=== PATIENT | female | born 1945 | race Caucasian/White ===

== ENCOUNTER 2017-07-27 11:19 | Inpatient (IN) | payer BC ==
[~2017-07-27] VITALS: Ht 146.3 cm; Wt 68.3 kg
[2017-09-01 11:33] VITALS: Ht 146.3 cm; Wt 68.3 kg
[2017-09-02] VITALS (31 sets, daily range): BP systolic 95–131; BP diastolic 50–79; PULSE 52–78; RESP 11–22
[2017-09-02] MEDS ORDERED: D5-NS + KCL 20 MEQ 1,000 ML IV SCH (06:00)
[2017-09-02] MEDS ORDERED: Metronidazole 500 MG in NS 100 ML IVPB SCH (06:00)
[2017-09-02] MEDS ORDERED: CEFAZOLIN 2 GM/50 ML (PMX) 50 ML IVPB SCH (06:00)
[2017-09-02] MEDS ORDERED: ASPI81TA3 PO (07:15)
[2017-09-02] MEDS ORDERED: AMLO-147 PO (07:15)
[2017-09-02] MEDS ORDERED: ATEN50TA PO (07:15)
[2017-09-02] MEDS ORDERED: HYDR12.53 PO (07:15)
[2017-09-02] MEDS ORDERED: ATOR40TA68 PO (07:15)
[2017-09-02] MEDS ORDERED: SUCCINYLCHOLINE CHLORIDE 100 MG/5 ML SYG IV ONE (07:46)
[2017-09-02] MEDS ORDERED: METOCLOPRAMIDE 10 MG INJ ONE (07:46)
[2017-09-02] MEDS ORDERED: ONDANSETRON 4 MG INJ ONE (07:46)
[2017-09-02] MEDS ORDERED: ROCURONIUM 50 MG INJ ONE (07:46)
[2017-09-02] MEDS ORDERED: PROPOFOL 20 ML ONE (07:46)
[2017-09-02] MEDS ORDERED: FENTAnyl 50 MCG/ML VIAL ONE (07:46)
[2017-09-02] MEDS ORDERED: LIDOCAINE 2%/EPI 30 ML INJ ONE (08:10)
[2017-09-02] MEDS ORDERED: MIDAZOLAM 1 MG/ML 2 ML INJ ONE (08:10)
[2017-09-02] MEDS ORDERED: THROMBIN 5000 UNIT VIAL ONE (08:13)
[2017-09-02] MEDS ORDERED: VASOPRESSIN 20 UNITS INJ ONE (08:13)
[2017-09-02] MEDS ORDERED: METHYLENE BLUE 1% 10 ML INJ ONE (08:13)
[2017-09-02] MEDS ORDERED: SODIUM CL BACTERIOSTATIC 30 ML INJ ONE (08:16)
[2017-09-02] MEDS: metroNIDAZOLE 500 MG/NS (PMX) 100 ML IVPB SCH ×2 (09:30→17:27)
--- NOTE | 2017-09-02 09:47 | HPN ---
Date/Time of Note Date/Time of Note DATE: 09/02/17 TIME: 09:47 Interval H&P Admission Note Pt. seen H&P reviewed: No system changes NUNO HECTOR MD Sep 02, 2017 09:47
[2017-09-02] MEDS ORDERED: CEFAZOLIN 1 GM in SOD CHLORIDE 0.9% 100 ML IVPB SCH (10:00)
[2017-09-02] MEDS ORDERED: HYDROmorphONE (0.2 MG/ML) 10ML SYG IV PRN ×3 (10:30)
[2017-09-02] MEDS ORDERED: ONDANSETRON 4 MG INJ IV PRN ×2 (10:30→11:30)
[2017-09-02] MEDS ORDERED: FENTAnyl 50 MCG/ML VIAL IV PRN ×2 (10:30)
[2017-09-02] MEDS ORDERED: MEPERIDINE 25 MG INJ IV PRN (10:30)
[2017-09-02] MEDS ORDERED: LABETALOL HCL 20MG INJ IV PRN (10:30)
[2017-09-02] MEDS ORDERED: hydrALAzine 20 MG INJ IV PRN (10:30)
[2017-09-02] MEDS ORDERED: morphine SULFATE/PF (10 MG/10 ML) INJ ONE (11:23)
[2017-09-02] MEDS ORDERED: NALOXONE (0.4 MG/ML) INJ IV PRN (11:30)
[2017-09-02] MEDS ORDERED: DIPHENHYDRAMINE 50 MG INJ IV PRN (11:30)
[2017-09-02] MEDS ORDERED: HYDROmorphONE 0.5 MG/0.5 ML SYG IV PRN ×2 (11:30)
[2017-09-02] MEDS ORDERED: ATROPINE 1 MG/10 ML SYRINGE ONE (12:37)
[2017-09-02] MEDS ORDERED: NEOSTIGMINE 3 MG/3 ML SYRINGE ONE (12:38)
--- NOTE | 2017-09-02 12:51 | SIPON ---
Date/Time of Note Date/Time of Note DATE: 09/02/17 TIME: 12:49 Operative Report Preoperative Diagnosis endometrial cancer Postoperative Diagnosis same path pending Operation/Procedure Performed TLH/BSO/P/A LND Surgeon see signature line inventory assistant Anitra BRADLEY Anesthesia: other Estimated blood loss: 50 - 100 ml's Transfusion Required none Specimen multiple Grafts/Implants none Complications none NUNO HECTOR MD Sep 02, 2017 12:51
--- NOTE | 2017-09-02 12:51 | SIPON ---
Date/Time of Note Date/Time of Note DATE: 09/02/17 TIME: 12:49 Operative Report Preoperative Diagnosis endometrial cancer Postoperative Diagnosis same path pending Operation/Procedure Performed TLH/BSO/P/A LND Surgeon see signature line human resource assistant Anitra BRADLEY Anesthesia: other Estimated blood loss: 50 - 100 ml's Transfusion Required none Specimen multiple Grafts/Implants none Complications none NUNO HECTOR MD Sep 02, 2017 12:51
--- NOTE | 2017-09-02 12:51 | SIPON ---
Date/Time of Note Date/Time of Note DATE: 09/02/17 TIME: 12:49 Operative Report Preoperative Diagnosis endometrial cancer Postoperative Diagnosis same path pending Operation/Procedure Performed TLH/BSO/P/A LND Surgeon see signature line assistant store leader Anitra BRADLEY Anesthesia: other Estimated blood loss: 50 - 100 ml's Transfusion Required none Specimen multiple Grafts/Implants none Complications none NUNO HECTOR MD Sep 02, 2017 12:51
[2017-09-02] MEDS: CEFAZOLIN 1 GM/50 ML (PMX) 50 ML IVPB SCH ×2 (13:53→20:53)
[2017-09-02] MEDS ORDERED: ACETAMINOPHEN 325 MG TAB PO PRN (16:00)
[2017-09-02] MEDS: POTASSIUM CHLORIDE 20 MEQ in LACTATED RINGER'S 1,000 ML IV SCH ×2 (16:25→19:44)
[2017-09-03] MEDS: metroNIDAZOLE 500 MG/NS (PMX) 100 ML IVPB SCH (02:32)
[2017-09-03 05:00] VITALS: BP 115/55; PULSE 63
[2017-09-03] MEDS: CEFAZOLIN 1 GM/50 ML (PMX) 50 ML IVPB SCH (05:37)
[2017-09-03] MEDS: POTASSIUM CHLORIDE 20 MEQ in LACTATED RINGER'S 1,000 ML IV SCH ×2 (05:38→17:46)
--- NOTE | 2017-09-03 06:10 | HP ---
DATE OF ADMISSION: 09/02/2017 CHIEF COMPLAINT AND HISTORY OF PRESENT ILLNESS: The patient is a 72-year-old female with a history of endometrial cancer, was brought in to hospital today and underwent laparoscopic total hysterectom y, bilateral salpingo-oophorectomy and local lymph node dissection. The patient is being admitted f or further care. The patient denied any chest pain or shortness of breath. No reported nausea, vom iting, no reported leg edema. No previous history of diabetes. The patient does have a history of hypertension for which she was on Norvasc, atenolol and hydrochlorothiazide. The patient also has h istory of dyslipidemia for which she was taking Lipitor. Patient denies any resting pain in lower e xtremity. No recent fever or chills. REVIEW OF SYSTEMS: Other than postoperative pain, rest of review of systems unremarkable. PAST MEDICAL HISTORY: As stated above. ALLERGIES: NONE. SOCIAL HISTORY: No smoking, no alcohol. FAMILY HISTORY: Noncontributory. PHYSICAL EXAMINATION: GENERAL: The patient is conscious, awake, alert. VITAL SIGNS: Temperature 98.4, pulse 64, respirations 22, blood pressure 115/55, O2 saturation 97% on 2 liters nasal cannula. HEENT: No eye discharge or redness. Extraocular movement intact. Oropharynx clear. NECK: Supple. No mass, no thyromegaly. CHEST: Fairly clear. CARDIOVASCULAR: S1, S2 normal. No murmur. ABDOMEN: The patient is status post surgery. EXTREMITIES: No edema. Pedal pulses palpable. SKIN: Without rash. NEUROLOGIC: The patient is awake, alert with no gross focal deficit. RECENT PREOPERATIVE LABORATORY DATA: WBC 9.3, hemoglobin 12.6, platelets 251. Sodium 143, potassiu m 3.7, BUN 16, creatinine 0.7. Liver enzymes normal. Postoperatively, the patient did have repeat labs which revealed white count of 22.2, hemoglobin 11.3; however, potassium was 3.2. IMPRESSION: 1. Endometrial cancer, status post surgery as described above. 2. Hypertension. 3. Mild hypokalemia. PLAN: The patient admitted on medical floor. The patient will be started on clear liquid diet. Th e patient has also been started on Ringer lactate. As there has been concern, patient will be start ed on Tylenol, [place] and IV Dilaudid for pain control, depending upon severity and will use SCD for DVT prophylaxis. Since the patient's blood pressure seems to be within low normal range, we will on ly start atenolol and will continue Lipitor. We will hold off on hydrochlorothiazide and amlodipine . We will continue to follow electrolytes. Plan of care discussed with nursing staff. Further rec ommendations will depend on patient's hospital course. Dictated By: PRINCESS OBREGON/KASANDRA Conf#: [id number] DID#: [id number]
[2017-09-03 07:53] VITALS: BP 110/54
[2017-09-03] MEDS: ATENOLOL 50 MG TAB PO SCH (08:47)
[2017-09-03] MEDS: morphine 2 MG INJ IV PRN ×3 (08:56→20:07)
--- NOTE | 2017-09-03 10:24 | PN ---
Date/Time of Note Date/Time of Note DATE: 09/03/17 TIME: 10:24 Assessment/Plan VTE Prophylaxis VTE Prophylaxis Intervention: other Lines/Catheters IV Catheter Type (from Nrs): Peripheral IV Urinary Cath still in place: Yes Reason Cath still needed: skin wounds contaminated by urine Assessment/Plan Chief Complaint/Hosp Course 1. Endometrial cancer, status post surgery as described above. 2. Hypertension. 3. Mild hypokalemia. Problems: Subjective 24 Hr Interval Summary Free Text/Dictation Patient has some abdominal pain Exam/Review of Systems Vital Signs Vitals Vital Signs Date Time Temp Pulse Resp B/P Pulse Ox O2 Delivery O2 Flow Rate FiO2 09/03/17 08:00 Nasal Cannula 3.0 09/03/17 07:53 98.3 86 110/54 93 09/02/17 23:59 18 Intake and Output 09/02/17 09/02/17 09/03/17 15:00 23:00 07:00 Intake Total 2050 ml 320 ml 1490 ml Output Total 700 ml 125 ml 950 ml Balance 1350 ml 195 ml 540 ml Exam Constitutional: well developed Head: atraumatic, normocephalic Neck: supple Respiratory: clear to auscultation Cardiovascular: regular rate and rhythm Gastrointestinal: soft, tender Extremities: normal pulses Results Result Diagram: 09/02/17 1327 09/03/17 0449 Results 24 hrs Laboratory Tests Test 09/02/17 13:27 09/03/17 04:49 White Blood Count 22.2 #H Red Blood Count 3.84 L Hemoglobin 11.7 L Hematocrit 34.0 L Mean Corpuscular Volume 88.5 Mean Corpuscular Hemoglobin 30.5 Mean Corpuscular Hemoglobin Concent 34.4 Red Cell Distribution Width 12.2 Platelet Count 272 Mean Platelet Volume 10.1 Neutrophils % 87.7 H Lymphocytes % 5.2 L Monocytes % 6.3 Eosinophils % 0.0 Basophils % 0.3 Nucleated Red Blood Cells % 0.0 Neutrophils # 19.5 H Lymphocytes # 1.2 Monocytes # 1.4 H Eosinophils # 0.0 Basophils # 0.1 Nucleated Red Blood Cells # 0.0 CBC Results Faxed/Phoned 1 *H Sodium Level 144 143 Potassium Level 3.2 L 3.5 Chloride Level 110 106 Carbon Dioxide Level 24 27 Anion Gap 13 14 Blood Urea Nitrogen 11 8 Creatinine 0.74 0.68 Glucose Level 169 125 # Calcium Level 8.7 8.6 Total Bilirubin 0.3 Direct Bilirubin 0.00 Indirect Bilirubin 0.3 Aspartate Amino Transf (AST/SGOT) 26 Alanine Aminotransferase (ALT/SGPT) 33 Alkaline Phosphatase 54 Total Protein 6.3 Albumin 3.7 Globulin 2.60 Albumin/Globulin Ratio 1.42 Medications Medications Current Medications Potassium Chloride/Lactated Ringer's (KCl/Lr) 1,010 ml @ 70 mls/hr [id number] IV Last administered on 09/03/17 05:38; Admin Dose 100 MLS/HR; Start 09/02/17 at 09:38 Hydromorphone HCl (Dilaudid) 0.4 mg Q2H PRN IV PAIN LEVEL 6-10 Last administered on 09/02/17 22:00; Admin Dose 0.4 MG; Start 09/02/17 at 11:30; Stop 09/03/17 at 11:45 Diphenhydramine HCl (Benadryl) 25 mg Q4H PRN IV PRURITUS; Start 09/02/17 at 11 :30; Stop 09/03/17 at 11:45 Ondansetron HCl (Zofran Inj) 4 mg Q6H PRN IV NAUSEA AND/OR VOMITING; Start at 11:30; Stop 09/03/17 at 11:45 Naloxone HCl (Narcan) 0.2 mg Q2M PRN IV FOR RESP RATE 8 OR LESS; Start at 11:30; Stop 09/03/17 at 11:45 Ondansetron HCl (Zofran Inj) 4 mg Q6H PRN IV NAUSEA AND/OR VOMITING; Start at 11:46 Acetaminophen (Tylenol Tab) 650 mg Q4H PRN PO PAIN AND OR ELEVATED TEMP; Start 09/02/17 at 16:00 Acetaminophen/ Hydrocodone Bitart ([place] (5/325)) 1 tab Q4H PRN PO PAIN LEVEL 1 -5; Start 09/03/17 at 11:45 Acetaminophen/ Hydrocodone Bitart ([place] (5/325)) 2 tab Q4H PRN PO PAIN LEVEL 6 -10; Start 09/03/17 at 11:45 Atenolol (Tenormin) 50 mg DAILY PO Last administered on 10/28/17at 08:47; Admin Dose 50 MG; Start 09/03/17 at 09:00 Atorvastatin Calcium (Lipitor) 40 mg QHS PO ; Start 09/03/17 at 21:00 Morphine Sulfate (morphine) 2 mg Q2H PRN IV SEVERE PAIN LEVEL 7-10 Last administered on 09/03/17t 08:56; Admin Dose 2 MG; Start 09/03/17 at 09:00 CARMEN NEW Sep 03, 2017 10:24
[2017-09-03] MEDS ORDERED: morphine 2 MG INJ IV PRN (11:45)
[2017-09-03] MEDS ORDERED: HYDROCODONE/APAP (5/325) TAB PO PRN ×2 (11:45)
[2017-09-03] MEDS ORDERED: ONDANSETRON 4 MG INJ IV PRN (11:46)
[2017-09-03] MEDS ORDERED: ALBUTEROL/IPRATROPIUM (NEB) 3 ML AMP HHN PRN (13:30)
[2017-09-03 14:00] VITALS: BP 128/62; RESP 19
--- NOTE | 2017-09-03 15:00 | PN ---
Date/Time of Note Date/Time of Note DATE: 09/03/17 TIME: 14:58 Assessment/Plan VTE Prophylaxis VTE Prophylaxis Intervention: SCD's Lines/Catheters IV Catheter Type (from Nrsg): Peripheral IV Urinary Cath still in place: Yes Reason Cath still needed: urinary retention Assessment/Plan Chief Complaint/Hosp Course endometrial ca Problems: Assessment/Plan A- doing well P- adv diet and OOB; possibly d/c a.m. Subjective 24 Hr Interval Summary Free Text/Dictation Feels comfortable but minimally OOB and sl flatus Exam/Review of Systems Vital Signs Vitals Vital Signs Date Time Temp Pulse Resp B/P Pulse Ox O2 Delivery O2 Flow Rate FiO2 09/03/17 13:44 10.0 60 09/03/17 08:00 Nasal Cannula 09/03/17 07:53 98.3 86 110/54 93 09/02/17 23:59 18 Intake and Output 09/02/17 09/02/17 09/03/17 15:00 23:00 07:00 Intake Total 2050 ml 320 ml 1490 ml Output Total 700 ml 125 ml 950 ml Balance 1350 ml 195 ml 540 ml Exam Resp- even and nt CVS- NSR Abd- soft NT Ext- NT no edema Results Result Diagram: 09/02/17 1327 09/03/17 0449 Results 24 hrs Laboratory Tests Test 09/03/17 04:49 Sodium Level 143 Potassium Level 3.5 Chloride Level 106 Carbon Dioxide Level 27 Anion Gap 14 Blood Urea Nitrogen 8 Creatinine 0.68 Glucose Level 125 # Calcium Level 8.6 Total Bilirubin 0.3 Direct Bilirubin 0.00 Indirect Bilirubin 0.3 Aspartate Amino Transf (AST/SGOT) 26 Alanine Aminotransferase (ALT/SGPT) 33 Alkaline Phosphatase 54 Total Protein 6.3 Albumin 3.7 Globulin 2.60 Albumin/Globulin Ratio 1.42 Medications Medications Current Medications Potassium Chloride/Lactated Ringer's (KCl/Lr) 1,010 ml @ 70 mls/hr [id number] IV Last administered on 09/03/17t 05:38; Admin Dose 100 MLS/HR; Start 09/02/17 at 09:38 Ondansetron HCl (Zofran Inj) 4 mg Q6H PRN IV NAUSEA AND/OR VOMITING; Start at 11:46 Acetaminophen (Tylenol Tab) 650 mg Q4H PRN PO PAIN AND OR ELEVATED TEMP; Start 09/02/17 at 16:00 Acetaminophen/ Hydrocodone Bitart ([place] (5/325)) 1 tab Q4H PRN PO PAIN LEVEL 1 -5; Start 09/03/17 at 11:45 Acetaminophen/ Hydrocodone Bitart ([place] (5/325)) 2 tab Q4H PRN PO PAIN LEVEL 6 -10; Start 09/03/17 at 11:45 Atenolol (Tenormin) 50 mg DAILY PO Last administered on 09/03/17 08:47; Admin Dose 50 MG; Start 09/03/17 at 09:00 Atorvastatin Calcium (Lipitor) 40 mg QHS PO ; Start 09/03/17 at 21:00 Morphine Sulfate (morphine) 2 mg Q2H PRN IV SEVERE PAIN LEVEL 7-10 Last administered on 09/03/17 08:56; Admin Dose 2 MG; Start 09/03/17 at 09:00 NUNO HECTOR MD Sep 03, 2017 15:00
--- NOTE | 2017-09-03 15:00 | PN ---
Date/Time of Note Date/Time of Note DATE: 09/03/17 TIME: 14:58 Assessment/Plan VTE Prophylaxis VTE Prophylaxis Intervention: SCD's Lines/Catheters IV Catheter Type (from Nrsg): Peripheral IV Urinary Cath still in place: Yes Reason Cath still needed: urinary retention Assessment/Plan Chief Complaint/Hosp Course endometrial ca Problems: Assessment/Plan A- doing well P- adv diet and OOB; possibly d/c a.m. Subjective 24 Hr Interval Summary Free Text/Dictation Feels comfortable but minimally OOB and sl flatus Exam/Review of Systems Vital Signs Vitals Vital Signs Date Time Temp Pulse Resp B/P Pulse Ox O2 Delivery O2 Flow Rate FiO2 09/03/17 13:44 10.0 60 09/03/17 08:00 Nasal Cannula 09/03/17 07:53 98.3 86 110/54 93 09/02/17 23:59 18 Intake and Output 09/02/17 09/02/17 09/03/17 15:00 23:00 07:00 Intake Total 2050 ml 320 ml 1490 ml Output Total 700 ml 125 ml 950 ml Balance 1350 ml 195 ml 540 ml Exam Resp- even and nt CVS- NSR Abd- soft NT Ext- NT no edema Results Result Diagram: 09/02/17 1327 09/03/17 0449 Results 24 hrs Laboratory Tests Test 09/03/17 04:49 Sodium Level 143 Potassium Level 3.5 Chloride Level 106 Carbon Dioxide Level 27 Anion Gap 14 Blood Urea Nitrogen 8 Creatinine 0.68 Glucose Level 125 # Calcium Level 8.6 Total Bilirubin 0.3 Direct Bilirubin 0.00 Indirect Bilirubin 0.3 Aspartate Amino Transf (AST/SGOT) 26 Alanine Aminotransferase (ALT/SGPT) 33 Alkaline Phosphatase 54 Total Protein 6.3 Albumin 3.7 Globulin 2.60 Albumin/Globulin Ratio 1.42 Medications Medications Current Medications Potassium Chloride/Lactated Ringer's (KCl/Lr) 1,010 ml @ 70 mls/hr [id number] IV Last administered on 09/03/17t 05:38; Admin Dose 100 MLS/HR; Start 09/02/17 at 09:38 Ondansetron HCl (Zofran Inj) 4 mg Q6H PRN IV NAUSEA AND/OR VOMITING; Start at 11:46 Acetaminophen (Tylenol Tab) 650 mg Q4H PRN PO PAIN AND OR ELEVATED TEMP; Start 09/02/17 at 16:00 Acetaminophen/ Hydrocodone Bitart ([place] (5/325)) 1 tab Q4H PRN PO PAIN LEVEL 1 -5; Start 09/03/17 at 11:45 Acetaminophen/ Hydrocodone Bitart ([place] (5/325)) 2 tab Q4H PRN PO PAIN LEVEL 6 -10; Start 09/03/17 at 11:45 Atenolol (Tenormin) 50 mg DAILY PO Last administered on 09/03/17 08:47; Admin Dose 50 MG; Start 09/03/17 at 09:00 Atorvastatin Calcium (Lipitor) 40 mg QHS PO ; Start 09/03/17 at 21:00 Morphine Sulfate (morphine) 2 mg Q2H PRN IV SEVERE PAIN LEVEL 7-10 Last administered on 09/03/17 08:56; Admin Dose 2 MG; Start 09/03/17 at 09:00 NUNO HECTOR MD Sep 03, 2017 15:00
--- NOTE | 2017-09-03 15:00 | PN ---
Date/Time of Note Date/Time of Note DATE: 09/03/17 TIME: 14:58 Assessment/Plan VTE Prophylaxis VTE Prophylaxis Intervention: SCD's Lines/Catheters IV Catheter Type (from Nrsg): Peripheral IV Urinary Cath still in place: Yes Reason Cath still needed: urinary retention Assessment/Plan Chief Complaint/Hosp Course endometrial ca Problems: Assessment/Plan A- doing well P- adv diet and OOB; possibly d/c a.m. Subjective 24 Hr Interval Summary Free Text/Dictation Feels comfortable but minimally OOB and sl flatus Exam/Review of Systems Vital Signs Vitals Vital Signs Date Time Temp Pulse Resp B/P Pulse Ox O2 Delivery O2 Flow Rate FiO2 09/03/17 13:44 10.0 60 09/03/17 08:00 Nasal Cannula 09/03/17 07:53 98.3 86 110/54 93 09/02/17 23:59 18 Intake and Output 09/02/17 09/02/17 09/03/17 15:00 23:00 07:00 Intake Total 2050 ml 320 ml 1490 ml Output Total 700 ml 125 ml 950 ml Balance 1350 ml 195 ml 540 ml Exam Resp- even and nt CVS- NSR Abd- soft NT Ext- NT no edema Results Result Diagram: 09/02/17 1327 09/03/17 0449 Results 24 hrs Laboratory Tests Test 09/03/17 04:49 Sodium Level 143 Potassium Level 3.5 Chloride Level 106 Carbon Dioxide Level 27 Anion Gap 14 Blood Urea Nitrogen 8 Creatinine 0.68 Glucose Level 125 # Calcium Level 8.6 Total Bilirubin 0.3 Direct Bilirubin 0.00 Indirect Bilirubin 0.3 Aspartate Amino Transf (AST/SGOT) 26 Alanine Aminotransferase (ALT/SGPT) 33 Alkaline Phosphatase 54 Total Protein 6.3 Albumin 3.7 Globulin 2.60 Albumin/Globulin Ratio 1.42 Medications Medications Current Medications Potassium Chloride/Lactated Ringer's (KCl/Lr) 1,010 ml @ 70 mls/hr [id number] IV Last administered on 09/03/17t 05:38; Admin Dose 100 MLS/HR; Start 09/02/17 at 09:38 Ondansetron HCl (Zofran Inj) 4 mg Q6H PRN IV NAUSEA AND/OR VOMITING; Start at 11:46 Acetaminophen (Tylenol Tab) 650 mg Q4H PRN PO PAIN AND OR ELEVATED TEMP; Start 09/02/17 at 16:00 Acetaminophen/ Hydrocodone Bitart ([place] (5/325)) 1 tab Q4H PRN PO PAIN LEVEL 1 -5; Start 09/03/17 at 11:45 Acetaminophen/ Hydrocodone Bitart ([place] (5/325)) 2 tab Q4H PRN PO PAIN LEVEL 6 -10; Start 09/03/17 at 11:45 Atenolol (Tenormin) 50 mg DAILY PO Last administered on 09/03/17 08:47; Admin Dose 50 MG; Start 09/03/17 at 09:00 Atorvastatin Calcium (Lipitor) 40 mg QHS PO ; Start 09/03/17 at 21:00 Morphine Sulfate (morphine) 2 mg Q2H PRN IV SEVERE PAIN LEVEL 7-10 Last administered on 09/03/17 08:56; Admin Dose 2 MG; Start 09/03/17 at 09:00 NUNO HECTOR MD Sep 03, 2017 15:00
[2017-09-03] MEDS: ATORVASTATIN 40 MG TAB PO SCH (20:07)
[2017-09-03 20:13] VITALS: BP 122/74; PULSE 74; RESP 18
--- NOTE | 2017-09-03 20:51 | OPR ---
Date/Time of Note Date/Time of Note DATE: 09/03/17 TIME: 20:48 Operative Report Free Text/Dictation OPERATIVE REPORT [facility] Name: Jonn Saldana Medical Date: 09/02/17 Preoperative Diagnosis: 1-Endometrial cancer grade 1 Postoperative Diagnosis: Endometrial cancer with final pathology pending Procedures: 1- Total laparoscopic hysterectomy with bilateral salpingoophorectomy 2- Bilateral ureteral dissection with repositioning 3- Laparoscopic pelvic and aortic lymph node dissection 4- Retroperitoneal uterine artery ligation adjacent to hypogastric artery Surgeon: Dr. Calvillo Gas Manager: Anitra Guillen Anaesthesia: General with regional Indications for Procedure: This 72- year old patient had a grade 1 endometrial cancer without evidence of metastatic disease preoperatively and after discussions of options with risks and benefits it was determined that a laparoscopic hysterectomy with bilateral salpingoophorectomy and pelvic/aortic lymph node dissection would be completed for the purposes of treatment and possibly planning additional adjuvant therapy. The pelvic and LND was performed in lieu of final grading not being equivalent to preoperative D&C grade 18-25% of the time and frozen section not being more that 80% reliable in determining grade and depth of invasion; therefore complete staging is performed to determine postoperative management unless there is a significant contraindication. Intraoperative Findings and Summary of Procedure: Name: Jonn Saldana Medical After placing the Trocars and exploration we noted obesity with a small but irregular uterus with significant adhesions of the adnexia to the sidewalls. The TLH/BSO was then performed without incident but required a ureteral dissection due to anatomic issues of the adnexia adherent to the sidewalls and large hypervascular IP-ligament bilaterally with retroperitoneal uterine artery ligation adjacent to hypogastric artery for required hemostasis due to hypervascularity, with the laparoscopic LND being subsequently performed with a finding of grossly negative nodes pathology pending. The patient will stay a minimum of one night to observe for recovery of from anesthesia and confirm stable hemoglobin and hematocrit with the necessity of confirmation of some GI recovery and probably need an addition night as well. Findings and Procedure: After being prepped and draped in the usual manner an EEA sizer and pneumo- occluder was inserted vaginally. A 5-millimeter trocar was then placed cephlad to the umbilicus without incident. Subsequently, we insufflated and placed two 12- millimeter trocars laterally and a 12-millimeter trocar suprapubically, as well as an additional 12-mm trocar cephlad to the umbilicus. At this time multiple pelvic adhesions were lysed with sharp dissection and the Omni if not adjacent to serosa. Subsequently we explored and noted a minimally enlarged irregular uterus with adnexia adherent to the sidewalls due to apparent inflammation and old scar tissue. Initially the right round ligament was cauterized and transected with the Thunderbeat and the retroperitoneal space further opened parallel to the IP ligament an laterally with the same devise. The right ureter was identified and due to the aforementioned distortion from adherent adnexia was dissected laterally with the Omni and the endo-dissector. After lateralizing the ureter the uterine artery was identified and clipped adjacent to the hypogastric artery due to the uterine enlargement and hypervascularity lateral to the ureter. Hence, a space was developed the broad ligament and the right IP ligament was cauterized and transected with a Thunderbeat after which the uterus was retracted medially and the Name: [facility] bladder flap was partly developed with the Gyrus bipolar cutting forceps and the Omni. We then used a 10-mm ratcheted endo-grasper placed through the 12-mm suprapubic trocar to manipulate the uterus and with the EEA sizer uterus was retracted and left round ligament was cauterized and transected with the Thunderbeat and the retroperitoneal space further opened parallel to the IP ligament an laterally with the same devise. The left ureter was identified and due to the aforementioned distortion was dissected laterally with the Omni and the endo-dissector as done contralaterally. After lateralizing the ureter the uterine artery was identified and clipped adjacent to the hypogastric artery due to the uterine enlargement and hypervascularity lateral to the ureter. Hence, a space was developed in the broad ligament and the left IP ligament was cauterized and transected with a Thunderbeat after which the uterus was retracted medially, allowing development or the bladder flap uneventfully with a Thunderbeat and blunt dissection. Subsequently, the right uterine artery was transected with a Thunderbeat perpendicular to the distal lower uterine segment and the Cardinal ligament and utero-sacral ligament were both transected with an Omni and Thunderbeat parallel to the lower uterine segment and cervix. An identical series of steps were taken on the left side. The anterior and posterior colpotomies were accomplished with a Thunderbeat anteriorly and posteriorly, and continued around the sides as the specimen was removed through the vagina uneventfully. The vagina was closed with interrupted 0 Vicryl suture and continuous 2-0 v-lock suture. At this time the frozen section returned grade 1 uncertain depth of invasion and the pelvic and aortic LND were completed after confirming hemostasis. Initially a fan retractor was used for exposure and secured to the [place] arm and all lymph node tissue adjacent to the right external iliac artery and vein, hypogastric artery and vein, as well as obturator fossa were removed with sharp and blunt dissection, using the Thunderbeat or Gyrus bipolar Omni for hemostasis and lymphostasis. The padmini tissue was grasped and subsequently placed under tractions with the Omni and the Thunderbeat then being used for the hemostasis and lymphostasis in the process of removal. The dissection was continued to include padmini tissue adjacent to the common iliac vessels. The obturator nerve was Name: [facility] identified and all adjacent padmini tissue removed with blunt dissection, with the Thunderbeat or Gyrus bipolar Omni used for lymphostasis and hemostasis as needed. The fan retractors were adjusted in that a suprapubically placed fan retracted the broad ligament and ureter with ileum while the right lateral trocar was used for a fan to retract the cecum and ascending colon allowing any padmini tissue adjacent to the vena cava, as well as aorto-caval nodes to be removed using identical technique. [place] vessels were addressed with the Thunderbeat or Gyrus bipolar Omni. At this time we placed the fan retractors for contralateral exposure. Subsequently, all lymph node tissue adjacent to the left external iliac artery and vein, hypogastric artery and vein, as well as obturator fossa were removed with sharp and blunt dissection, the Thunderbeat or Gyrus bipolar Omni for hemostasis and lymphostasis, with a technique identical to the right side. The dissection was continued to include padmini tissue adjacent to the common iliac vessels. Subsequently, the fan retractors were adjusted and any padmini tissue adjacent to the aorta were dissected using similar technique. After irrigating and assuring hemostasis the 12-millimeter trocars were removed and the fascia was closed with 0-vicryl using an endo- close devise. The gas was removed and the skin of all sites then closed with subcutaneous 5-0 Monocryl suture. The EBL was 100cc and the patient tolerated the procedure well and left the OR in good condition. Nuno Calvillo M.D. Preoperative Diagnosis as above Postoperative Diagnosis as above Operation/Procedure Performed as above Surgeon see signature line Gas Manager as above Anesthesia Type: other Estimated Blood Loss: 100 - 150 ml's Transfusion none Specimen multiple Grafts/Implants none Tubes/Drains as above Complications none Indications as above Procedure Description as above NUNO CALVILLO MD Sep 03, 2017 20:51
[2017-09-04] VITALS (17 sets, daily range): BP systolic 123–148; BP diastolic 59–87; PULSE 52–70; RESP 15–27
[2017-09-04] MEDS: morphine 2 MG INJ IV PRN (06:37)
[2017-09-04] MEDS: POTASSIUM CHLORIDE 20 MEQ in LACTATED RINGER'S 1,000 ML IV SCH ×3 (09:24→22:14)
[2017-09-04] MEDS: ATENOLOL 50 MG TAB PO SCH (09:24)
--- NOTE | 2017-09-04 09:58 | RADRPT ---
PROCEDURE: XR Chest. CLINICAL INDICATION: 72-year-old female with hypoxia. TECHNIQUE: Single frontal view of the chest was obtained. COMPARISON: None FINDINGS: There are faint artifacts possibly related to a sheath or other material over the upper right chest wall. The soft tissues are otherwise unremarkable. There are degenerative osteophytes in the thorac ic and upper lumbar spine. The heart is a transverse configuration from a poor inspiration. The car diomediastinal silhouette and hilar structures are normal. The pulmonary vasculature is increased. There are vascular calcifications in the left-sided aorta. There are perihilar and basilar infiltrat es with peribronchial cuffing. There are bilateral pleural effusions. IMPRESSION: 1. Bilateral perihilar and basilar infiltrates are identified and could relate to pulmonary edema, p neumonia, ARDS or heart failure. 2. Atherosclerosis of the aortic arch. 3. Spondylosis of the thoracic and lumbar spine. 4. Mild cardiomegaly with increased pulmonary vascularity. RPTAT:AAJJ Physician Carmen Date Time Electronically viewed and signed by Physician Carmen on 09/04/2017 09:58 FELIBERTO/
--- NOTE | 2017-09-04 11:11 | PN ---
Date/Time of Note Date/Time of Note DATE: 09/04/17 TIME: 11:09 Assessment/Plan VTE Prophylaxis VTE Prophylaxis Intervention: other Lines/Catheters IV C[facility] Type (from [facility] Peripheral IV Urinary Cath still in place: No Assessment/Plan Chief Complaint/Hosp Course 1. Endometrial cancer, status post surgery as described above. 2. Hypertension. 3. Mild hypokalemia. 4. Hypoxemia - oxygen replacement - spiral CT to rule out PE - consult pulmonary to follow along Problems: Subjective 24 Hr Interval Summary Free Text/Dictation Patient became hypoxic overnight, requiring up to nonrebreather to keep sat greater than 90%. Exam/Review of Systems Vital Signs Vitals Vital Signs Date Time Temp Pulse Resp B/P Pulse Ox O2 Delivery O2 Flow Rate FiO2 09/04/17 09:59 Rebreather 15.0 09/04/17 07:41 97.2 69 19 133/65 98 09/04/17 00:26 100 Intake and Output 09/03/17 09/03/17 09/04/17 15:00 23:00 07:00 Intake Total 450 ml 1480 ml 1200 ml Output Total 550 ml 800 ml Balance 450 ml 930 ml 400 ml Exam Constitutional: well developed Head: atraumatic, normocephalic Neck: supple Respiratory: diminished breath sounds Cardiovascular: regular rate and rhythm Gastrointestinal: non-tender, soft Extremities: normal pulses Results Result Diagram: 09/04/17 0436 09/04/17 0439 Results 24 hrs Laboratory Tests Test 09/03/17 14:14 09/04/17 04:36 09/04/17 04:39 Blood Gas Specimen Source Blood arterial Arterial Blood Date Drawn 09/03/2017 2:49:58 PM Arterial Blood pH (Temp corrected) 7.475 H Arterial Blood pCO2 (Temp correct) 37.8 Arterial Blood pO2 (Temp corrected) 54.9 *L Arterial Blood HCO3 27.2 H Arterial Blood Base Excess 3.5 H Arterial Blood Oxygen Saturation 90.0 L Dez Test N/A Arterial Blood Gas Puncture Site LB Arterial Blood Carboxyhemoglobin 0.3 Arterial Blood Methemoglobin 0.1 Blood Gas A-a O2 Differential 338.6 H Oxyhemoglobin Percent 89.6 L Total Hemoglobin 11.8 L Blood Gas Temperature 37.0 Blood Gas Modality MASK - SIMPLE FiO2 61.0 Blood Gas Notified Whom ab Blood Gas Notified Time 09/03/2017 2:58:59 PM White Blood Count 16.4 #H Red Blood Count 3.71 L Hemoglobin 10.9 L Hematocrit 33.1 L Mean Corpuscular Volume 89.2 Mean Corpuscular Hemoglobin 29.4 Mean Corpuscular Hemoglobin Concent 32.9 Red Cell Distribution Width 12.5 Platelet Count 214 # Mean Platelet Volume 10.1 Neutrophils % 78.7 H Lymphocytes % 11.6 L Monocytes % 8.8 Eosinophils % 0.0 Basophils % 0.2 Nucleated Red Blood Cells % 0.0 Neutrophils # 12.9 H Lymphocytes # 1.9 Monocytes # 1.5 H Eosinophils # 0.0 Basophils # 0.0 Nucleated Red Blood Cells # 0.0 Sodium Level 139 Potassium Level 3.9 Chloride Level 104 Carbon Dioxide Level 30 Anion Gap 9 # Blood Urea Nitrogen 8 Creatinine 0.67 Glucose Level 110 Calcium Level 9.0 Medications Medications Current Medications Potassium Chloride/Lactated Ringer's (KCl/Lr) 1,010 ml @ 70 mls/hr [id number] IV Last administered on 09/04/17 09:24; Admin Dose 70 MLS/HR; Start 09/02/17 at 09:38 Ondansetron HCl (Zofran Inj) 4 mg Q6H PRN IV NAUSEA AND/OR VOMITING; Start at 11:46 Acetaminophen (Tylenol Tab) 650 mg Q4H PRN PO PAIN AND OR ELEVATED TEMP; Start 09/02/17 at 16:00 Acetaminophen/ Hydrocodone Bitart ([place] (5/325)) 1 tab Q4H PRN PO PAIN LEVEL 1 -5; Start 09/03/17 at 11:45 Acetaminophen/ Hydrocodone Bitart ([place] (5/325)) 2 tab Q4H PRN PO PAIN LEVEL 6 -10; Start 09/03/17 at 11:45 Atenolol (Tenormin) 50 mg DAILY PO Last administered on 09/04/17 09:24; Admin Dose 50 MG; Start 09/03/17 at 09:00 Atorvastatin Calcium (Lipitor) 40 mg QHS PO Last administered on 09/03/17 20: 07; Admin Dose 40 MG; Start 09/03/17 at 21:00 Morphine Sulfate (morphine) 2 mg Q2H PRN IV SEVERE PAIN LEVEL 7-10 Last administered on 09/04/17 06:37; Admin Dose 2 MG; Start 09/03/17 at 09:00 CARMEN NEW Sep 04, 2017 11:11
[2017-09-04] MEDS ORDERED: IOHEXOL 100 ML ONE (11:22)
[2017-09-04] MEDS ORDERED: SOD CHLORIDE 0.9% 100 ML ONE (11:22)
[2017-09-04] MEDS ORDERED: FUROSEMIDE 40 MG INJ ONE (11:34)
[2017-09-04] MEDS ORDERED: FUROSEMIDE 40 MG INJ IV ONE (12:00)
--- NOTE | 2017-09-04 13:23 | RADRPT ---
PROCEDURE: CTA Chest - Pulmonary embolism protocol with 3D reconstructions. CLINICAL INDICATION: Shortness of breath. TECHNIQUE: CT angiographic evaluation of the pulmonary arteries were performed following the admini stration of intravenous contrast. Post-processing 3D MIP reconstructions were performed on the PACS workstation. Intravenous contrast: 100 cc, Omnipaque 350. Radiation dose: CTDIvol (mGy) = 16.9, 18.2; total DLP (mGy-cm) = 589. One or more of the following radiation dose techniques were used: -Automated exposure control. -Adjust of the mA and/or kV according to patient size. -Use of iterative reconstruction technique. COMPARISON: None. FINDINGS: Satisfactory evaluation of the pulmonary arteries demonstrate no filling defect to the level of the segmental branches. There is no evidence of aortic dissection or aneurysm. Small bilateral pleural effusions with atelectasis of the bilateral lower and right middle lobes. Th ere is also air space disease/consolidation noted in the bilateral posterior upper lobes. There is m ild interlobular septal thickening, consistent with hydrostatic interstitial edema. Cardiomegaly without pericardial effusion. There are three-vessel coronary calcifications. Heterogeneous thyroid gland incidentally noted. Trace perihepatic ascites. IMPRESSION: Technically satisfactory CT pulmonary angiogram without evidence of pulmonary thromboembolic disease to the segmental arterial level. Hydrostatic interstitial pulmonary edema with small bilateral pleural effusions with associated righ t middle and bilateral lower lobe atelectasis. There is heterogeneous air space disease/consolidatio n involving the posterior upper lobes. Cardiomegaly with three-vessel coronary calcifications. RPTAT: EE .Vineet Carroll MD, Date Time Electronically viewed and signed by .Vineet Carroll MD, MD on 09/04/2017 13:28 .C/
--- NOTE | 2017-09-04 15:49 | CONS ---
DATE OF ADMISSION: 09/02/2017 DATE OF CONSULTATION: TYPE OF CONSULTATION: Pulmonary. REASON FOR CONSULTATION: Respiratory distress. Thank you, Dr. Saucedo, for this consultation. HISTORY OF PRESENT ILLNESS: This is a 72-year-old lady with a history of endometrial cancer, underw ent laparoscopic hysterectomy and bilateral salpingo-oophorectomy with lymph node resection. Yester day, she had progressive dyspnea and today has marked hypoxemia requiring nonrebreather O2. She, ho wever, remains awake, alert, and oriented on nonrebreather without accessory muscle use. PAST MEDICAL HISTORY: Endometrial cancer per chart. ALLERGIES: NONE. SOCIAL HISTORY: Nonsmoker, no alcohol, no history of drug use. FAMILY HISTORY: Noncontributory. SYSTEMS REVIEW: A 14-point review of systems was negative other than that mentioned above. PHYSICAL EXAMINATION: GENERAL: Well-nourished, well-developed lady, comfortable at rest on nonrebreather, talking in full and complete sentences. VITAL SIGNS: Currently afebrile, temperature 98, pulse is 59, blood pressure 148/70 per chart, sats 94% on nonrebreather. NECK: Supple. No JVD or lymphadenopathy. CARDIAC: S1, S2, no added sounds or murmurs. CHEST: Diminished air entry bilaterally. ABDOMEN: Soft, nontender. No guarding or rebound. EXTREMITIES: No cyanosis, clubbing, edema. NEUROLOGIC: Generalized weakness. LABORATORY DATA: White count 16.4, hemoglobin 10.9, platelets are 214. BUN 8, creatinine 0.67. AB G: PaO2 was 54.9 on simple mask. DIAGNOSTIC DATA: Chest x-ray was reviewed, shows bilateral infiltrates consistent with pulmonary ed key or pneumonia. IMPRESSION AND PLAN: 1. Acute hypoxemic respiratory failure, status post hysterectomy and bilateral salpingo-oophorectom y, now hypoxic with possible underlying pneumonia and pulmonary edema. I recommend a trial of Lasix given evidence of pulmonary edema. 2. Consider broad spectrum antibiotics. 3. Transfer to intensive care unit for further monitoring. 4. CT angiogram, rule out PE. Dictated By: AARON AGUILAR/NTS Conf#: [id number] DID#: [id number]
--- NOTE | 2017-09-04 16:43 | PN ---
Date/Time of Note Date/Time of Note DATE: 09/04/17 TIME: 16:40 Assessment/Plan VTE Prophylaxis VTE Prophylaxis Intervention: LMWH Lines/Catheters IV Catheter Type (from [facility]rs): Peripheral IV Urinary Cath still in place: No Assessment/Plan Chief Complaint/Hosp Course endometrial ca Problems: Assessment/Plan A- doing better P- per IM. Subjective 24 Hr Interval Summary Free Text/Dictation Feels better than earlier today, less SOB and no chest pain and some flatus Exam/Review of Systems Vital Signs Vitals Vital Signs Date Time Temp Pulse Resp B/P Pulse Ox O2 Delivery O2 Flow Rate FiO2 09/04/17 15:00 55 21 134/60 93 Non Rebreather 09/04/17 13:15 98.8 09/04/17 09:59 15.0 09/04/17 00:26 100 Intake and Output 09/03/17 09/03/17 09/04/17 15:00 23:00 07:00 Intake Total 450 ml 1480 ml 1200 ml Output Total 550 ml 800 ml Balance 450 ml 930 ml 400 ml Exam Resp- clear CVS- NSR Abd- soft Ext- NT no edema Results Result Diagram: 09/04/17 0436 09/04/17 0439 Results 24 hrs Laboratory Tests Test 09/04/17 04:36 09/04/17 04:39 White Blood Count 16.4 #H Red Blood Count 3.71 L Hemoglobin 10.9 L Hematocrit 33.1 L Mean Corpuscular Volume 89.2 Mean Corpuscular Hemoglobin 29.4 Mean Corpuscular Hemoglobin Concent 32.9 Red Cell Distribution Width 12.5 Platelet Count 214 # Mean Platelet Volume 10.1 Neutrophils % 78.7 H Lymphocytes % 11.6 L Monocytes % 8.8 Eosinophils % 0.0 Basophils % 0.2 Nucleated Red Blood Cells % 0.0 Neutrophils # 12.9 H Lymphocytes # 1.9 Monocytes # 1.5 H Eosinophils # 0.0 Basophils # 0.0 Nucleated Red Blood Cells # 0.0 Sodium Level 139 Potassium Level 3.9 Chloride Level 104 Carbon Dioxide Level 30 Anion Gap 9 # Blood Urea Nitrogen 8 Creatinine 0.67 Glucose Level 110 Calcium Level 9.0 Medications Medications Current Medications Potassium Chloride/Lactated Ringer's (KCl/Lr) 1,010 ml @ 40 mls/hr Q24H IV Last administered on 09/04/17t 13:31; Admin Dose 40 MLS/HR; Start 09/02/17 at 09:38 Ondansetron HCl (Zofran Inj) 4 mg Q6H PRN IV NAUSEA AND/OR VOMITING; Start at 11:46 Acetaminophen (Tylenol Tab) 650 mg Q4H PRN PO PAIN AND OR ELEVATED TEMP; Start 09/02/17 at 16:00 Acetaminophen/ Hydrocodone Bitart ([place] (5/325)) 1 tab Q4H PRN PO PAIN LEVEL 1 -5; Start 09/03/17 at 11:45 Acetaminophen/ Hydrocodone Bitart ([place] (5/325)) 2 tab Q4H PRN PO PAIN LEVEL 6 -10; Start 09/03/17 at 11:45 Atenolol (Tenormin) 50 mg DAILY PO Last administered on 09/04/17 09:24; Admin Dose 50 MG; Start 09/03/17 at 09:00 Atorvastatin Calcium (Lipitor) 40 mg QHS PO Last administered on 09/03/17 20: 07; Admin Dose 40 MG; Start 09/03/17 at 21:00 Morphine Sulfate (morphine) 2 mg Q2H PRN IV SEVERE PAIN LEVEL 7-10 Last administered on 09/04/17 06:37; Admin Dose 2 MG; Start 09/03/17 at 09:00 NUNO HECTOR MD Sep 04, 2017 16:43
[2017-09-04] MEDS: ATORVASTATIN 40 MG TAB PO SCH (20:20)
[2017-09-05] VITALS (25 sets, daily range): BP systolic 93–136; BP diastolic 50–75; PULSE 48–74; RESP 15–28
[2017-09-05] MEDS: POTASSIUM CHLORIDE 20 MEQ in LACTATED RINGER'S 1,000 ML IV SCH (08:56)
[2017-09-05] MEDS: ATENOLOL 50 MG TAB PO SCH (09:20)
[2017-09-05] MEDS: ENOXAPARIN 40 MG/0.4 ML SYG SC SCH (09:21)
[2017-09-05] MEDS: FUROSEMIDE 40 MG INJ IV SCH (11:03)
--- NOTE | 2017-09-05 11:45 | CONS ---
Date/Time of Note Date/Time of Note DATE: 09/05/17 TIME: 11:42 Consult Date/Type/Reason Admit Date/Time Sep 02, 2017 at 06:12 Initial Consult Date Type of Consultation: Pulmonary Subjective She is stable following transfer to intensive care unit yesterday. Now on Ventimask O2 decrease from nonrebreather. Objective Vital Signs Date Time Temp Pulse Resp B/P Pulse Ox O2 Delivery O2 Flow Rate FiO2 09/05/17 09:00 54 18 123/55 99 Nasal Cannula 5.0 09/05/17 08:05 98.8 09/04/17 00:26 100 Intake and Output 09/04/17 09/04/17 09/05/17 15:00 23:00 07:00 Intake Total 240 ml 550 ml 500 ml Output Total 1150 ml 500 ml 850 ml Balance -910 ml 50 ml -350 ml Exam PHYSICAL EXAMINATION: GENERAL: Well-nourished, well-developed lady, comfortable at rest on nonrebreather, talking in full and complete sentences. VITAL SIGNS: NECK: Supple. No JVD or lymphadenopathy. CARDIAC: S1, S2, no added sounds or murmurs. CHEST: Diminished air entry bilaterally. ABDOMEN: Soft, nontender. No guarding or rebound. EXTREMITIES: No cyanosis, clubbing, edema. NEUROLOGIC: Generalized weakness. Results/Medications Result Diagram: 09/05/17 0425 09/05/17 0425 Results 24 hrs Laboratory Tests Test 09/05/17 04:25 09/05/17 07:00 White Blood Count 12.7 #H Red Blood Count 3.81 L Hemoglobin 11.4 L Hematocrit 33.6 L Mean Corpuscular Volume 88.2 Mean Corpuscular Hemoglobin 29.9 Mean Corpuscular Hemoglobin Concent 33.9 Red Cell Distribution Width 11.9 Platelet Count 223 Mean Platelet Volume 10.2 Neutrophils % 75.5 Lymphocytes % 14.4 L Monocytes % 8.9 Eosinophils % 0.5 Basophils % 0.2 Nucleated Red Blood Cells % 0.0 Neutrophils # 9.6 H Lymphocytes # 1.8 Monocytes # 1.1 H Eosinophils # 0.1 Basophils # 0.0 Nucleated Red Blood Cells # 0.0 Sodium Level 140 Potassium Level 3.4 L Chloride Level 102 Carbon Dioxide Level 30 Anion Gap 11 Blood Urea Nitrogen 8 Creatinine 0.61 Glucose Level 91 Calcium Level 8.6 Phosphorus Level 2.7 Magnesium Level 1.8 Blood Gas Specimen Source Blood arterial Arterial Blood Date Drawn 09/05/2017 8:00:39 AM Arterial Blood pH (Temp corrected) 7.507 H Arterial Blood pCO2 (Temp correct) 35.8 Arterial Blood pO2 (Temp corrected) 63.6 L Arterial Blood HCO3 27.7 H Arterial Blood Base Excess 4.7 H Arterial Blood Oxygen Saturation 93.7 L Dez Test ACCEPTAB Arterial Blood Gas Puncture Site Right Radial Arterial Blood Carboxyhemoglobin 0.1 Arterial Blood Methemoglobin 0.2 Blood Gas A-a O2 Differential 613.6 H Oxyhemoglobin Percent 93.4 Total Hemoglobin 12.5 Blood Gas Temperature 37.0 Blood Gas Modality MASK - NRB FiO2 100.0 Blood Gas Notified Whom JLD Blood Gas Notified Time 09/05/2017 8:22:12 AM Medications Current Medications Potassium Chloride/Lactated Ringer's (KCl/Lr) 1,010 ml @ 40 mls/hr Q24H IV Last administered on 09/04/17 13:31; Admin Dose 40 MLS/HR; Start 09/02/17 at 09:38 Ondansetron HCl (Zofran Inj) 4 mg Q6H PRN IV NAUSEA AND/OR VOMITING; Start at 11:46 Acetaminophen (Tylenol Tab) 650 mg Q4H PRN PO PAIN AND OR ELEVATED TEMP; Start 09/02/17 at 16:00 Acetaminophen/ Hydrocodone Bitart ([place] (5/325)) 1 tab Q4H PRN PO PAIN LEVEL 1 -5 Last administered on 09/04/17 20:20; Admin Dose 1 TAB; Start 09/03/17 at 11:45 Acetaminophen/ Hydrocodone Bitart ([place] (5/325)) 2 tab Q4H PRN PO PAIN LEVEL 6 -10; Start 09/03/17 at 11:45 Atenolol (Tenormin) 50 mg DAILY PO Last administered on 09/05/17 09:20; Admin Dose 50 MG; Start 09/03/17 at 09:00 Atorvastatin Calcium (Lipitor) 40 mg QHS PO Last administered on 09/04/17 20: 20; Admin Dose 40 MG; Start 09/03/17 at 21:00 Morphine Sulfate (morphine) 2 mg Q2H PRN IV SEVERE PAIN LEVEL 7-10 Last administered on 09/04/17 06:37; Admin Dose 2 MG; Start 09/03/17 at 09:00 Enoxaparin Sodium (Lovenox) 40 mg DAILY SC Last administered on 09/05/17 09: 21; Admin Dose 40 MG; Start 09/05/17 at 09:00 Furosemide (Lasix) 40 mg DAILY IV Last administered on 09/05/17 11:03; Admin Dose 40 MG; Start 09/05/17 at 10:00 Assessment/Plan Chief Complaint/Hosp Course IMPRESSION AND PLAN: 1. Acute hypoxemic respiratory failure, status post hysterectomy and bilateral salpingo-oophorectomy, now hypoxic with possible underlying pneumonia and pulmonary edema. I recommend a trial of Lasix given evidence of pulmonary edema. 2. Consider broad spectrum antibiotics if patient becomes febrile or leukocytosis not improving. 3. Continue ICU monitoring 4. CT angiogram, no evidence of pulmonary embolism bibasilar atelectasis Problems: AARON VENTURA MD, [facility] Sep 05, 2017 11:45
--- NOTE | 2017-09-05 11:50 | PN ---
Date/Time of Note Date/Time of Note DATE: 09/05/17 TIME: 11:48 Assessment/Plan VTE Prophylaxis VTE Prophylaxis Intervention: LMWH Lines/Catheters IV [facility] Type (from [facility] Peripheral IV Urinary Cath still in place: No Assessment/Plan Chief Complaint/Hosp Course endometrial ca Problems: Assessment/Plan A- improved P - per IM Subjective 24 Hr Interval Summary Free Text/Dictation Less SOB and feels better. Exam/Review of Systems Vital Signs Vitals Vital Signs Date Time Temp Pulse Resp B/P Pulse Ox O2 Delivery O2 Flow Rate FiO2 09/05/17 09:00 54 18 123/55 99 Nasal Cannula 5.0 09/05/17 08:05 98.8 09/04/17 00:26 100 Intake and Output 09/04/17 09/04/17 09/05/17 15:00 23:00 07:00 Intake Total 240 ml 550 ml 500 ml Output Total 1150 ml 500 ml 850 ml Balance -910 ml 50 ml -350 ml Exam Resp- clear CVS- NSR Abd- soft NT Ext- NT no edema Results Result Diagram: 09/05/17 0425 09/05/17 0425 Results 24 hrs Laboratory Tests Test 09/05/17 04:25 09/05/17 07:00 White Blood Count 12.7 #H Red Blood Count 3.81 L Hemoglobin 11.4 L Hematocrit 33.6 L Mean Corpuscular Volume 88.2 Mean Corpuscular Hemoglobin 29.9 Mean Corpuscular Hemoglobin Concent 33.9 Red Cell Distribution Width 11.9 Platelet Count 223 Mean Platelet Volume 10.2 Neutrophils % 75.5 Lymphocytes % 14.4 L Monocytes % 8.9 Eosinophils % 0.5 Basophils % 0.2 Nucleated Red Blood Cells % 0.0 Neutrophils # 9.6 H Lymphocytes # 1.8 Monocytes # 1.1 H Eosinophils # 0.1 Basophils # 0.0 Nucleated Red Blood Cells # 0.0 Sodium Level 140 Potassium Level 3.4 L Chloride Level 102 Carbon Dioxide Level 30 Anion Gap 11 Blood Urea Nitrogen 8 Creatinine 0.61 Glucose Level 91 Calcium Level 8.6 Phosphorus Level 2.7 Magnesium Level 1.8 Blood Gas Specimen Source Blood arterial Arterial Blood Date Drawn 09/05/2017 8:00:39 AM Arterial Blood pH (Temp corrected) 7.507 H Arterial Blood pCO2 (Temp correct) 35.8 Arterial Blood pO2 (Temp corrected) 63.6 L Arterial Blood HCO3 27.7 H Arterial Blood Base Excess 4.7 H Arterial Blood Oxygen Saturation 93.7 L Dez Test ACCEPTAB Arterial Blood Gas Puncture Site Right Radial Arterial Blood Carboxyhemoglobin 0.1 Arterial Blood Methemoglobin 0.2 Blood Gas A-a O2 Differential 613.6 H Oxyhemoglobin Percent 93.4 Total Hemoglobin 12.5 Blood Gas Temperature 37.0 Blood Gas Modality MASK - NRB FiO2 100.0 Blood Gas Notified Whom JLD Blood Gas Notified Time 09/05/2017 8:22:12 AM Medications Medications Current Medications Potassium Chloride/Lactated Ringer's (KCl/Lr) 1,010 ml @ 40 mls/hr Q24H IV Last administered on 09/04/17 13:31; Admin Dose 40 MLS/HR; Start 09/02/17 at 09:38 Ondansetron HCl (Zofran Inj) 4 mg Q6H PRN IV NAUSEA AND/OR VOMITING; Start at 11:46 Acetaminophen (Tylenol Tab) 650 mg Q4H PRN PO PAIN AND OR ELEVATED TEMP; Start 09/02/17 at 16:00 Acetaminophen/ Hydrocodone Bitart ([place] (5/325)) 1 tab Q4H PRN PO PAIN LEVEL 1 -5 Last administered on 09/04/17 20:20; Admin Dose 1 TAB; Start 09/03/17 at 11:45 Acetaminophen/ Hydrocodone Bitart ([place] (5/325)) 2 tab Q4H PRN PO PAIN LEVEL 6 -10; Start 09/03/17 at 11:45 Atenolol (Tenormin) 50 mg DAILY PO Last administered on 09/05/17 09:20; Admin Dose 50 MG; Start 09/03/17 at 09:00 Atorvastatin Calcium (Lipitor) 40 mg QHS PO Last administered on 09/04/17 20: 20; Admin Dose 40 MG; Start 09/03/17 at 21:00 Morphine Sulfate (morphine) 2 mg Q2H PRN IV SEVERE PAIN LEVEL 7-10 Last administered on 09/04/17 06:37; Admin Dose 2 MG; Start 09/03/17 at 09:00 Enoxaparin Sodium (Lovenox) 40 mg DAILY SC Last administered on 09/05/17 09: 21; Admin Dose 40 MG; Start 09/05/17 at 09:00 Furosemide (Lasix) 40 mg DAILY IV Last administered on 09/05/17t 11:03; Admin Dose 40 MG; Start 09/05/17 at 10:00 NUNO HECTOR MD Sep 05, 2017 11:50
--- NOTE | 2017-09-05 15:18 | PN ---
Date/Time of Note Date/Time of Note DATE: 09/05/17 TIME: 15:10 Assessment/Plan VTE Prophylaxis VTE Prophylaxis Intervention: SCD's Lines/Catheters IV [facility]ter Type [facility] Peripheral IV Urinary Cath still in place: No Assessment/Plan Chief Complaint/Hosp Course Patient was transferred to ICU over the weekend due to acute respiratory failure. Patient was given Lasix. Patient Is comfortable on supplemental oxygen via facemask, denies any nausea vomiting. Problems: Assessment/Plan - Endometrial cancer, status post lap total hysterectomy and bilateral salpingo -oophorectomy on the 09/[address] Calvillo. - Acute hypoxemic respiratory failure, Dr. Donato is following in pulmonology consultation. CTA is negative for PE. - Possible congestive heart failure, patient's condition improved with Lasix. Dr. Vo is asked to see patient in cardiology consultation. - Cardiomegaly. - Hypertension. Continue atenolol. Further recommendations based on clinical course. Plan of care discussed with Dr. Saucedo. Exam/Review of Systems Vital Signs Vitals Vital Signs Date Time Temp Pulse Resp B/P Pulse Ox O2 Delivery O2 Flow Rate FiO2 09/05/17 14:00 74 28 93/52 94 Mask 5.0 09/05/17 12:00 98.8 09/04/17 00:26 100 Intake and Output 09/04/17 09/04/17 09/05/17 15:00 23:00 07:00 Intake Total 240 ml 550 ml 540 ml Output Total 1150 ml 500 ml 850 ml Balance -910 ml 50 ml -310 ml Exam Constitutional: alert, oriented Head: normocephalic Neck: supple Respiratory: diminished breath sounds Cardiovascular: nl pulses Gastrointestinal: non-tender, soft Genitourinary - Female: other (s/p surgery) Extremities: normal pulses Results Result Diagram: 09/05/17 0425 09/05/17 0425 Results 24 hrs Laboratory Tests Test 09/05/17 04:25 09/05/17 07:00 White Blood Count 12.7 #H Red Blood Count 3.81 L Hemoglobin 11.4 L Hematocrit 33.6 L Mean Corpuscular Volume 88.2 Mean Corpuscular Hemoglobin 29.9 Mean Corpuscular Hemoglobin Concent 33.9 Red Cell Distribution Width 11.9 Platelet Count 223 Mean Platelet Volume 10.2 Neutrophils % 75.5 Lymphocytes % 14.4 L Monocytes % 8.9 Eosinophils % 0.5 Basophils % 0.2 Nucleated Red Blood Cells % 0.0 Neutrophils # 9.6 H Lymphocytes # 1.8 Monocytes # 1.1 H Eosinophils # 0.1 Basophils # 0.0 Nucleated Red Blood Cells # 0.0 Sodium Level 140 Potassium Level 3.4 L Chloride Level 102 Carbon Dioxide Level 30 Anion Gap 11 Blood Urea Nitrogen 8 Creatinine 0.61 Glucose Level 91 Calcium Level 8.6 Phosphorus Level 2.7 Magnesium Level 1.8 Blood Gas Specimen Source Blood arterial Arterial Blood Date Drawn 09/05/2017 8:00:39 AM Arterial Blood pH (Temp corrected) 7.507 H Arterial Blood pCO2 (Temp correct) 35.8 Arterial Blood pO2 (Temp corrected) 63.6 L Arterial Blood HCO3 27.7 H Arterial Blood Base Excess 4.7 H Arterial Blood Oxygen Saturation 93.7 L Dez Test ACCEPTAB Arterial Blood Gas Puncture Site Right Radial Arterial Blood Carboxyhemoglobin 0.1 Arterial Blood Methemoglobin 0.2 Blood Gas A-a O2 Differential 613.6 H Oxyhemoglobin Percent 93.4 Total Hemoglobin 12.5 Blood Gas Temperature 37.0 Blood Gas Modality MASK - NRB FiO2 100.0 Blood Gas Notified Whom JLD Blood Gas Notified Time 09/05/2017 8:22:12 AM Medications Medications Current Medications Ondansetron HCl (Zofran Inj) 4 mg Q6H PRN IV NAUSEA AND/OR VOMITING; Start at 11:46 Acetaminophen (Tylenol Tab) 650 mg Q4H PRN PO PAIN AND OR ELEVATED TEMP; Start 09/02/17 at 16:00 Acetaminophen/ Hydrocodone Bitart ([place] (5/325)) 1 tab Q4H PRN PO PAIN LEVEL 1 -5 Last administered on 09/04/17 20:20; Admin Dose 1 TAB; Start 09/03/17 at 11:45 Acetaminophen/ Hydrocodone Bitart ([place] (5/325)) 2 tab Q4H PRN PO PAIN LEVEL 6 -10; Start 09/03/17 at 11:45 Atenolol (Tenormin) 50 mg DAILY PO Last administered on 09/05/17 09:20; Admin Dose 50 MG; Start 09/03/17 at 09:00 Atorvastatin Calcium (Lipitor) 40 mg QHS PO Last administered on 09/04/17 20: 20; Admin Dose 40 MG; Start 09/03/17 at 21:00 Morphine Sulfate (morphine) 2 mg Q2H PRN IV SEVERE PAIN LEVEL 7-10 Last administered on 09/04/17 06:37; Admin Dose 2 MG; Start 09/03/17 at 09:00 Enoxaparin Sodium (Lovenox) 40 mg DAILY SC Last administered on 09/05/17 09: 21; Admin Dose 40 MG; Start 09/05/17 at 09:00 Furosemide (Lasix) 40 mg DAILY IV Last administered on 09/05/17 11:03; Admin Dose 40 MG; Start 09/05/17 at 10:00 [place] HE Sep 05, 2017 15:18
[2017-09-05] MEDS ORDERED: POTASSIUM CHLORIDE 20 MEQ POWDER FOR ORAL SOLN NGT ONE ×2 (15:30→16:00)
--- NOTE | 2017-09-05 15:41 | CONS ---
Date/Time of Note Date/Time of Note DATE: 09/05/17 TIME: 15:36 Assessment/Plan Assessment/Plan Additional Assessment/Plan Acute decompensated congestive heart failure Endometrial cancer status post hysterectomy History of Hypertension History of dyslipidemia -Patient with symptoms of shortness of breath and hypoxia post surgery. CT chest with contrast ruled out pulmonary emboli with evidence of pulmonary edema and pleural effusions. Her symptoms have improved significantly with IV diuretics. Would give extra dose of diuretics this afternoon, check echocardiogram, ECG, maintain potassium above 4.0 and magnesium above 2.0. Consultation Date/Type/Reason Admit Date/Time Sep 02, 2017 at 06:12 Type of Consultation: cv Reason for Consultation Shortness of breath Hx of Present Illness This is a 72-year-old female with past medical history of hypertension, dyslipidemia who presented for elective [employer]UFA[employer] surgery secondary to endometrial cancer. On review of medical chart and discussion with nursing staff, postoperatively, patient with progressive worsening shortness of breath. Patient was brought to ICU and with IV diuretics and oxygen supplementation, significant improvement in symptoms. She currently denies any shortness of breath, chest pain or palpitations. Prior to the surgery, she denies exertional chest pain or shortness of breath. 12 point review of systems was performed with all pertinent positives and negatives mentioned above and all else is negative Past Medical History Medical History: high cholesterol, hypertension Family History Significant Family History: no pertinent family hx Social History Smoking Status: Never smoker Exam/Review of Systems Vital Signs Vitals Vital Signs Date Time Temp Pulse Resp B/P Pulse Ox O2 Delivery O2 Flow Rate FiO2 09/05/17 14:00 74 28 93/52 94 Mask 5.0 09/05/17 12:00 98.8 09/04/17 00:26 100 Intake and Output 09/04/17 09/04/17 09/05/17 15:00 23:00 07:00 Intake Total 240 ml 550 ml 540 ml Output Total 1150 ml 500 ml 850 ml Balance -910 ml 50 ml -310 ml Exam On facemask, no apparent distress Constitutional: alert, oriented Head: normocephalic Respiratory: other (Coarse breath sounds bilaterally with minimal scattered crackles, no wheezing) Cardiovascular: other (S1-S2 heard), regular rate and rhythm Gastrointestinal: bowel sounds, non-tender, soft Extremities: edema Results Result Diagram: 09/05/1742409/05/17424 Results 24 hrs Laboratory Tests Test 09/05/17 04:25 09/05/17 07:00 White Blood Count 12.7 #H Red Blood Count 3.81 L Hemoglobin 11.4 L Hematocrit 33.6 L Mean Corpuscular Volume 88.2 Mean Corpuscular Hemoglobin 29.9 Mean Corpuscular Hemoglobin Concent 33.9 Red Cell Distribution Width 11.9 Platelet Count 223 Mean Platelet Volume 10.2 Neutrophils % 75.5 Lymphocytes % 14.4 L Monocytes % 8.9 Eosinophils % 0.5 Basophils % 0.2 Nucleated Red Blood Cells % 0.0 Neutrophils # 9.6 H Lymphocytes # 1.8 Monocytes # 1.1 H Eosinophils # 0.1 Basophils # 0.0 Nucleated Red Blood Cells # 0.0 Sodium Level 140 Potassium Level 3.4 L Chloride Level 102 Carbon Dioxide Level 30 Anion Gap 11 Blood Urea Nitrogen 8 Creatinine 0.61 Glucose Level 91 Calcium Level 8.6 Phosphorus Level 2.7 Magnesium Level 1.8 Blood Gas Specimen Source Blood arterial Arterial Blood Date Drawn 09/05/2017 8:00:39 AM Arterial Blood pH (Temp corrected) 7.507 H Arterial Blood pCO2 (Temp correct) 35.8 Arterial Blood pO2 (Temp corrected) 63.6 L Arterial Blood HCO3 27.7 H Arterial Blood Base Excess 4.7 H Arterial Blood Oxygen Saturation 93.7 L Dez Test ACCEPTAB Arterial Blood Gas Puncture Site Right Radial Arterial Blood Carboxyhemoglobin 0.1 Arterial Blood Methemoglobin 0.2 Blood Gas A-a O2 Differential 613.6 H Oxyhemoglobin Percent 93.4 Total Hemoglobin 12.5 Blood Gas Temperature 37.0 Blood Gas Modality MASK - NRB FiO2 100.0 Blood Gas Notified Whom JLD Blood Gas Notified Time 09/05/2017 8:22:12 AM Medications Medications Current Medications Ondansetron HCl (Zofran Inj) 4 mg Q6H PRN IV NAUSEA AND/OR VOMITING; Start at 11:46 Acetaminophen (Tylenol Tab) 650 mg Q4H PRN PO PAIN AND OR ELEVATED TEMP; Start 09/02/17 at 16:00 Acetaminophen/ Hydrocodone Bitart ([place] (5/325)) 1 tab Q4H PRN PO PAIN LEVEL 1 -5 Last administered on 09/04/17t 20:20; Admin Dose 1 TAB; Start 09/03/17 at 11:45 Acetaminophen/ Hydrocodone Bitart ([place] (5/325)) 2 tab Q4H PRN PO PAIN LEVEL 6 -10; Start 09/03/17 at 11:45 Atenolol (Tenormin) 50 mg DAILY PO Last administered on 09/05/17 09:20; Admin Dose 50 MG; Start 09/03/17 at 09:00 Atorvastatin Calcium (Lipitor) 40 mg QHS PO Last administered on 09/04/17 20: 20; Admin Dose 40 MG; Start 09/03/17 at 21:00 Morphine Sulfate (morphine) 2 mg Q2H PRN IV SEVERE PAIN LEVEL 7-10 Last administered on 09/04/17 06:37; Admin Dose 2 MG; Start 09/03/17 at 09:00 Enoxaparin Sodium (Lovenox) 40 mg DAILY SC Last administered on 09/05/17 09: 21; Admin Dose 40 MG; Start 09/05/17 at 09:00 Furosemide (Lasix) 40 mg DAILY IV Last administered on 09/05/17 11:03; Admin Dose 40 MG; Start 09/05/17 at 10:00 Potassium Chloride (Potassium Chloride Pwd/Soln) 20 meq ONCE ONCE NGT ; Start 09/05/17 at 15:30; Stop 09/05/17 at 15:31 Rigoberto Vo DO Sep 05, 2017 15:41
[2017-09-05] MEDS ORDERED: MAGNESIUM SULFATE 2 GM/50 ML 50 ML IVPB ONE (16:00)
[2017-09-05] MEDS ORDERED: FUROSEMIDE 20 MG INJ IV ONE (17:00)
[2017-09-05] MEDS: ATORVASTATIN 40 MG TAB PO SCH (20:17)
[2017-09-06] VITALS (23 sets, daily range): BP systolic 104–135; BP diastolic 51–99; PULSE 52–68; RESP 10–23
--- NOTE | 2017-09-06 08:46 | RADRPT ---
PROCEDURE: XR Chest. CLINICAL INDICATION: Shortness of breath. TECHNIQUE: Single frontal view. COMPARISON: 09/04/2017. FINDINGS: Pulmonary edema and bibasilar atelectasis is unchanged. The heart is enlarged. There is calcification in the aorta consistent with atherosclerosis. There are small bilateral pleural effusions. There is no pneumothorax. IMPRESSION: 1. No change from the prior chest radiograph. RPTAT: QQ .Erasmo Chau MD, MD Date Time Electronically viewed and signed by .Erasmo Chau MD, MD on 09/06/2017 08:45 .R/
[2017-09-06] MEDS: FUROSEMIDE 40 MG INJ IV SCH (09:09)
[2017-09-06] MEDS: ATENOLOL 50 MG TAB PO SCH (09:10)
[2017-09-06] MEDS: ENOXAPARIN 40 MG/0.4 ML SYG SC SCH (09:24)
--- NOTE | 2017-09-06 10:18 | CONS ---
Date/Time of Note Date/Time of Note DATE: 09/06/17 TIME: : Consult Date/Type/Reason Admit Date/Time Sep 02, 2017 at 06:12 Type of Consultation: Pulmonary Subjective Patient comfortable this morning on facemask O2. Objective Vital Signs Date Time Temp Pulse Resp B/P Pulse Ox O2 Delivery O2 Flow Rate FiO2 09/06/17 08:00 53 09/06/17 07:00 17 115/62 98 Mask 6.0 09/06/17 04:00 97.6 09/04/17 00:26 100 Intake and Output 09/05/17 09/05/17 09/06/17 15:00 23:00 07:00 Intake Total 500 ml 280 ml 250 ml Output Total 1000 ml 1300 ml 300 ml Balance -500 ml -1020 ml -50 ml Exam PHYSICAL EXAMINATION: GENERAL: Well-nourished, well-developed lady, comfortable at rest on nonrebreather, talking in full and complete sentences. VITAL SIGNS: NECK: Supple. No JVD or lymphadenopathy. CARDIAC: S1, S2, no added sounds or murmurs. CHEST: Diminished air entry bilaterally. ABDOMEN: Soft, nontender. No guarding or rebound. EXTREMITIES: No cyanosis, clubbing, edema. NEUROLOGIC: Generalized weakness. Results/Medications Result Diagram: 09/06/1751609/06/1717 Results 24 hrs Laboratory Tests Test 09/06/17 05:17 09/06/17 07:00 White Blood Count 11.3 H Red Blood Count 3.90 L Hemoglobin 11.8 L Hematocrit 34.4 L Mean Corpuscular Volume 88.2 Mean Corpuscular Hemoglobin 30.3 Mean Corpuscular Hemoglobin Concent 34.3 Red Cell Distribution Width 12.0 Platelet Count 259 Mean Platelet Volume 9.8 Neutrophils % 71.4 Lymphocytes % 18.0 Monocytes % 9.1 Eosinophils % 0.7 Basophils % 0.4 Nucleated Red Blood Cells % 0.0 Neutrophils # 8.1 H Lymphocytes # 2.0 Monocytes # 1.0 H Eosinophils # 0.1 Basophils # 0.1 Nucleated Red Blood Cells # 0.0 Sodium Level 139 Potassium Level 3.4 L Chloride Level 99 Carbon Dioxide Level 32 H Anion Gap 11 Blood Urea Nitrogen 13 Creatinine 0.68 Glucose Level 104 Calcium Level 8.6 Phosphorus Level 3.6 Magnesium Level 2.3 Blood Gas Specimen Source Blood arterial Arterial Blood Date Drawn 09/06/2017 6:20:48 AM Arterial Blood pH (Temp corrected) 7.512 H Arterial Blood pCO2 (Temp correct) 37.7 Arterial Blood pO2 (Temp corrected) 83.9 Arterial Blood HCO3 29.5 H Arterial Blood Base Excess 6.3 H Arterial Blood Oxygen Saturation 96.2 Dez Test ACCEPTAB Arterial Blood Gas Puncture Site Left Radial Arterial Blood Carboxyhemoglobin 0.3 Arterial Blood Methemoglobin 0.2 Blood Gas A-a O2 Differential 150.7 H Oxyhemoglobin Percent 95.7 Total Hemoglobin 12.6 Blood Gas Temperature 37.0 Blood Gas Modality MASK - SIMPLE FiO2 39.0 Blood Gas Notified Whom [employer] Blood Gas Notified Time 09/06/2017 6:30:26 AM Medications Current Medications Ondansetron HCl (Zofran Inj) 4 mg Q6H PRN IV NAUSEA AND/OR VOMITING; Start at 11:46 Acetaminophen (Tylenol Tab) 650 mg Q4H PRN PO PAIN AND OR ELEVATED TEMP; Start 09/02/17 at 16:00 Acetaminophen/ Hydrocodone Bitart ([place] (5/325)) 1 tab Q4H PRN PO PAIN LEVEL 1 -5 Last administered on 09/04/17 20:20; Admin Dose 1 TAB; Start 09/03/17 at 11:45 Acetaminophen/ Hydrocodone Bitart ([place] (5/325)) 2 tab Q4H PRN PO PAIN LEVEL 6 -10; Start 09/03/17 at 11:45 Atenolol (Tenormin) 50 mg DAILY PO Last administered on 09/06/17 09:10; Admin Dose 50 MG; Start 09/03/17 at 09:00 Atorvastatin Calcium (Lipitor) 40 mg QHS PO Last administered on 09/05/17 20: 17; Admin Dose 40 MG; Start 09/03/17 at 21:00 Morphine Sulfate (morphine) 2 mg Q2H PRN IV SEVERE PAIN LEVEL 7-10 Last administered on 09/04/17 06:37; Admin Dose 2 MG; Start 09/03/17 at 09:00 Enoxaparin Sodium (Lovenox) 40 mg DAILY SC Last administered on 09/06/17 09: 24; Admin Dose 40 MG; Start 09/05/17 at 09:00 Furosemide (Lasix) 40 mg DAILY IV Last administered on 09/06/17t 09:09; Admin Dose 40 MG; Start 09/05/17 at 10:00 Assessment/Plan Chief Complaint/Hosp Course IMPRESSION AND PLAN: 1. Acute hypoxemic respiratory failure, status post hysterectomy and bilateral salpingo-oophorectomy, now hypoxic with possible underlying pneumonia and pulmonary edema. Continue Lasix. Decrease O2 as tolerated 2. Consider broad spectrum antibiotics if patient becomes febrile or leukocytosis not improving. 3. Continue ICU monitoring 4. CT angiogram, no evidence of pulmonary embolism bibasilar atelectasis 5. Physical therapy encourage out of bed Transfer to telemetry okay from primary standpoint Problems: AARON VENTURA MD, [facility] Sep 06, 2017 10:18
--- NOTE | 2017-09-06 10:18 | CONS ---
Date/Time of Note Date/Time of Note DATE: 09/06/17 TIME: : Consult Date/Type/Reason Admit Date/Time Sep 02, 2017 at 06:12 Type of Consultation: Pulmonary Subjective Patient comfortable this morning on facemask O2. Objective Vital Signs Date Time Temp Pulse Resp B/P Pulse Ox O2 Delivery O2 Flow Rate FiO2 09/06/17 08:00 53 09/06/17 07:00 17 115/62 98 Mask 6.0 09/06/17 04:00 97.6 09/04/17 00:26 100 Intake and Output 09/05/17 09/05/17 09/06/17 15:00 23:00 07:00 Intake Total 500 ml 280 ml 250 ml Output Total 1000 ml 1300 ml 300 ml Balance -500 ml -1020 ml -50 ml Exam PHYSICAL EXAMINATION: GENERAL: Well-nourished, well-developed lady, comfortable at rest on nonrebreather, talking in full and complete sentences. VITAL SIGNS: NECK: Supple. No JVD or lymphadenopathy. CARDIAC: S1, S2, no added sounds or murmurs. CHEST: Diminished air entry bilaterally. ABDOMEN: Soft, nontender. No guarding or rebound. EXTREMITIES: No cyanosis, clubbing, edema. NEUROLOGIC: Generalized weakness. Results/Medications Result Diagram: 09/06/1751609/06/1717 Results 24 hrs Laboratory Tests Test 09/06/17 05:17 09/06/17 07:00 White Blood Count 11.3 H Red Blood Count 3.90 L Hemoglobin 11.8 L Hematocrit 34.4 L Mean Corpuscular Volume 88.2 Mean Corpuscular Hemoglobin 30.3 Mean Corpuscular Hemoglobin Concent 34.3 Red Cell Distribution Width 12.0 Platelet Count 259 Mean Platelet Volume 9.8 Neutrophils % 71.4 Lymphocytes % 18.0 Monocytes % 9.1 Eosinophils % 0.7 Basophils % 0.4 Nucleated Red Blood Cells % 0.0 Neutrophils # 8.1 H Lymphocytes # 2.0 Monocytes # 1.0 H Eosinophils # 0.1 Basophils # 0.1 Nucleated Red Blood Cells # 0.0 Sodium Level 139 Potassium Level 3.4 L Chloride Level 99 Carbon Dioxide Level 32 H Anion Gap 11 Blood Urea Nitrogen 13 Creatinine 0.68 Glucose Level 104 Calcium Level 8.6 Phosphorus Level 3.6 Magnesium Level 2.3 Blood Gas Specimen Source Blood arterial Arterial Blood Date Drawn 09/06/2017 6:20:48 AM Arterial Blood pH (Temp corrected) 7.512 H Arterial Blood pCO2 (Temp correct) 37.7 Arterial Blood pO2 (Temp corrected) 83.9 Arterial Blood HCO3 29.5 H Arterial Blood Base Excess 6.3 H Arterial Blood Oxygen Saturation 96.2 Dez Test ACCEPTAB Arterial Blood Gas Puncture Site Left Radial Arterial Blood Carboxyhemoglobin 0.3 Arterial Blood Methemoglobin 0.2 Blood Gas A-a O2 Differential 150.7 H Oxyhemoglobin Percent 95.7 Total Hemoglobin 12.6 Blood Gas Temperature 37.0 Blood Gas Modality MASK - SIMPLE FiO2 39.0 Blood Gas Notified Whom [employer] Blood Gas Notified Time 09/06/2017 6:30:26 AM Medications Current Medications Ondansetron HCl (Zofran Inj) 4 mg Q6H PRN IV NAUSEA AND/OR VOMITING; Start at 11:46 Acetaminophen (Tylenol Tab) 650 mg Q4H PRN PO PAIN AND OR ELEVATED TEMP; Start 09/02/17 at 16:00 Acetaminophen/ Hydrocodone Bitart ([place] (5/325)) 1 tab Q4H PRN PO PAIN LEVEL 1 -5 Last administered on 09/04/17 20:20; Admin Dose 1 TAB; Start 09/03/17 at 11:45 Acetaminophen/ Hydrocodone Bitart ([place] (5/325)) 2 tab Q4H PRN PO PAIN LEVEL 6 -10; Start 09/03/17 at 11:45 Atenolol (Tenormin) 50 mg DAILY PO Last administered on 09/06/17 09:10; Admin Dose 50 MG; Start 09/03/17 at 09:00 Atorvastatin Calcium (Lipitor) 40 mg QHS PO Last administered on 09/05/17 20: 17; Admin Dose 40 MG; Start 09/03/17 at 21:00 Morphine Sulfate (morphine) 2 mg Q2H PRN IV SEVERE PAIN LEVEL 7-10 Last administered on 09/04/17 06:37; Admin Dose 2 MG; Start 09/03/17 at 09:00 Enoxaparin Sodium (Lovenox) 40 mg DAILY SC Last administered on 09/06/17 09: 24; Admin Dose 40 MG; Start 09/05/17 at 09:00 Furosemide (Lasix) 40 mg DAILY IV Last administered on 09/06/17t 09:09; Admin Dose 40 MG; Start 09/05/17 at 10:00 Assessment/Plan Chief Complaint/Hosp Course IMPRESSION AND PLAN: 1. Acute hypoxemic respiratory failure, status post hysterectomy and bilateral salpingo-oophorectomy, now hypoxic with possible underlying pneumonia and pulmonary edema. Continue Lasix. Decrease O2 as tolerated 2. Consider broad spectrum antibiotics if patient becomes febrile or leukocytosis not improving. 3. Continue ICU monitoring 4. CT angiogram, no evidence of pulmonary embolism bibasilar atelectasis 5. Physical therapy encourage out of bed Transfer to telemetry okay from primary standpoint Problems: AARON VENTURA MD, [facility] Sep 06, 2017 10:18
--- NOTE | 2017-09-06 10:18 | CONS ---
Date/Time of Note Date/Time of Note DATE: 09/06/17 TIME: : Consult Date/Type/Reason Admit Date/Time Sep 02, 2017 at 06:12 Type of Consultation: Pulmonary Subjective Patient comfortable this morning on facemask O2. Objective Vital Signs Date Time Temp Pulse Resp B/P Pulse Ox O2 Delivery O2 Flow Rate FiO2 09/06/17 08:00 53 09/06/17 07:00 17 115/62 98 Mask 6.0 09/06/17 04:00 97.6 09/04/17 00:26 100 Intake and Output 09/05/17 09/05/17 09/06/17 15:00 23:00 07:00 Intake Total 500 ml 280 ml 250 ml Output Total 1000 ml 1300 ml 300 ml Balance -500 ml -1020 ml -50 ml Exam PHYSICAL EXAMINATION: GENERAL: Well-nourished, well-developed lady, comfortable at rest on nonrebreather, talking in full and complete sentences. VITAL SIGNS: NECK: Supple. No JVD or lymphadenopathy. CARDIAC: S1, S2, no added sounds or murmurs. CHEST: Diminished air entry bilaterally. ABDOMEN: Soft, nontender. No guarding or rebound. EXTREMITIES: No cyanosis, clubbing, edema. NEUROLOGIC: Generalized weakness. Results/Medications Result Diagram: 09/06/1751609/06/1717 Results 24 hrs Laboratory Tests Test 09/06/17 05:17 09/06/17 07:00 White Blood Count 11.3 H Red Blood Count 3.90 L Hemoglobin 11.8 L Hematocrit 34.4 L Mean Corpuscular Volume 88.2 Mean Corpuscular Hemoglobin 30.3 Mean Corpuscular Hemoglobin Concent 34.3 Red Cell Distribution Width 12.0 Platelet Count 259 Mean Platelet Volume 9.8 Neutrophils % 71.4 Lymphocytes % 18.0 Monocytes % 9.1 Eosinophils % 0.7 Basophils % 0.4 Nucleated Red Blood Cells % 0.0 Neutrophils # 8.1 H Lymphocytes # 2.0 Monocytes # 1.0 H Eosinophils # 0.1 Basophils # 0.1 Nucleated Red Blood Cells # 0.0 Sodium Level 139 Potassium Level 3.4 L Chloride Level 99 Carbon Dioxide Level 32 H Anion Gap 11 Blood Urea Nitrogen 13 Creatinine 0.68 Glucose Level 104 Calcium Level 8.6 Phosphorus Level 3.6 Magnesium Level 2.3 Blood Gas Specimen Source Blood arterial Arterial Blood Date Drawn 09/06/2017 6:20:48 AM Arterial Blood pH (Temp corrected) 7.512 H Arterial Blood pCO2 (Temp correct) 37.7 Arterial Blood pO2 (Temp corrected) 83.9 Arterial Blood HCO3 29.5 H Arterial Blood Base Excess 6.3 H Arterial Blood Oxygen Saturation 96.2 Dez Test ACCEPTAB Arterial Blood Gas Puncture Site Left Radial Arterial Blood Carboxyhemoglobin 0.3 Arterial Blood Methemoglobin 0.2 Blood Gas A-a O2 Differential 150.7 H Oxyhemoglobin Percent 95.7 Total Hemoglobin 12.6 Blood Gas Temperature 37.0 Blood Gas Modality MASK - SIMPLE FiO2 39.0 Blood Gas Notified Whom [employer] Blood Gas Notified Time 09/06/2017 6:30:26 AM Medications Current Medications Ondansetron HCl (Zofran Inj) 4 mg Q6H PRN IV NAUSEA AND/OR VOMITING; Start at 11:46 Acetaminophen (Tylenol Tab) 650 mg Q4H PRN PO PAIN AND OR ELEVATED TEMP; Start 09/02/17 at 16:00 Acetaminophen/ Hydrocodone Bitart ([place] (5/325)) 1 tab Q4H PRN PO PAIN LEVEL 1 -5 Last administered on 09/04/17 20:20; Admin Dose 1 TAB; Start 09/03/17 at 11:45 Acetaminophen/ Hydrocodone Bitart ([place] (5/325)) 2 tab Q4H PRN PO PAIN LEVEL 6 -10; Start 09/03/17 at 11:45 Atenolol (Tenormin) 50 mg DAILY PO Last administered on 09/06/17 09:10; Admin Dose 50 MG; Start 09/03/17 at 09:00 Atorvastatin Calcium (Lipitor) 40 mg QHS PO Last administered on 09/05/17 20: 17; Admin Dose 40 MG; Start 09/03/17 at 21:00 Morphine Sulfate (morphine) 2 mg Q2H PRN IV SEVERE PAIN LEVEL 7-10 Last administered on 09/04/17 06:37; Admin Dose 2 MG; Start 09/03/17 at 09:00 Enoxaparin Sodium (Lovenox) 40 mg DAILY SC Last administered on 09/06/17 09: 24; Admin Dose 40 MG; Start 09/05/17 at 09:00 Furosemide (Lasix) 40 mg DAILY IV Last administered on 09/06/17t 09:09; Admin Dose 40 MG; Start 09/05/17 at 10:00 Assessment/Plan Chief Complaint/Hosp Course IMPRESSION AND PLAN: 1. Acute hypoxemic respiratory failure, status post hysterectomy and bilateral salpingo-oophorectomy, now hypoxic with possible underlying pneumonia and pulmonary edema. Continue Lasix. Decrease O2 as tolerated 2. Consider broad spectrum antibiotics if patient becomes febrile or leukocytosis not improving. 3. Continue ICU monitoring 4. CT angiogram, no evidence of pulmonary embolism bibasilar atelectasis 5. Physical therapy encourage out of bed Transfer to telemetry okay from primary standpoint Problems: AARON VENTURA MD, [facility] Sep 06, 2017 10:18
--- NOTE | 2017-09-06 14:45 | PN ---
Date/Time of Note Date/Time of Note DATE: 09/06/17 TIME: 14:41 Assessment/Plan VTE Prophylaxis VTE Prophylaxis Intervention: SCD's Lines/Catheters [facility] Peripheral IV Urinary Cath still in place: No Assessment/Plan Chief Complaint/Hosp Course Patient is comfortable on supplemental oxygen via nasal cannula denies any chest pain denies shortness of breath. Assessment/Plan - Endometrial cancer, status post lap total hysterectomy and bilateral salpingo -oophorectomy on the 09/[address] Calvillo. - Acute hypoxemic respiratory failure, Dr. Donato is following in pulmonology consultation. CTA is negative for PE. Zosyn for possible underlying pneumonia. -Acute decompensated congestive heart failure, continue Lasix. Dr. Vo is following in cardiology consultation. - Cardiomegaly. - Hypertension. Continue atenolol. Further recommendations based on clinical course. Plan of care discussed with Dr. Saucedo. Problems: Exam/Review of Systems Vital Signs Vitals Vital Signs Date Time Temp Pulse Resp B/P Pulse Ox O2 Delivery O2 Flow Rate FiO2 09/06/17 14:00 4.0 09/06/17 14:00 55 21 113/72 99 Nasal Cannula 09/06/17 12:00 98.4 09/04/17 00:26 100 Intake and Output 09/05/17 09/05/17 09/06/17 15:00 23:00 07:00 Intake Total 500 ml 280 ml 250 ml Output Total 1000 ml 1300 ml 500 ml Balance -500 ml -1020 ml -250 ml Exam Constitutional: alert, oriented Head: normocephalic Neck: supple Respiratory: diminished breath sounds Cardiovascular: nl pulses Gastrointestinal: non-tender, soft Genitourinary - Female: other (s/p surgery) Extremities: normal pulses Results Result Diagram: 09/06/1717 09/06/1717 Results 24 hrs Laboratory Tests Test 09/06/17 05:17 09/06/17 07:00 White Blood Count 11.3 H Red Blood Count 3.90 L Hemoglobin 11.8 L Hematocrit 34.4 L Mean Corpuscular Volume 88.2 Mean Corpuscular Hemoglobin 30.3 Mean Corpuscular Hemoglobin Concent 34.3 Red Cell Distribution Width 12.0 Platelet Count 259 Mean Platelet Volume 9.8 Neutrophils % 71.4 Lymphocytes % 18.0 Monocytes % 9.1 Eosinophils % 0.7 Basophils % 0.4 Nucleated Red Blood Cells % 0.0 Neutrophils # 8.1 H Lymphocytes # 2.0 Monocytes # 1.0 H Eosinophils # 0.1 Basophils # 0.1 Nucleated Red Blood Cells # 0.0 Sodium Level 139 Potassium Level 3.4 L Chloride Level 99 Carbon Dioxide Level 32 H Anion Gap 11 Blood Urea Nitrogen 13 Creatinine 0.68 Glucose Level 104 Calcium Level 8.6 Phosphorus Level 3.6 Magnesium Level 2.3 Blood Gas Specimen Source Blood arterial Arterial Blood Date Drawn 09/06/2017 6:20:48 AM Arterial Blood pH (Temp corrected) 7.512 H Arterial Blood pCO2 (Temp correct) 37.7 Arterial Blood pO2 (Temp corrected) 83.9 Arterial Blood HCO3 29.5 H Arterial Blood Base Excess 6.3 H Arterial Blood Oxygen Saturation 96.2 Dez Test ACCEPTAB Arterial Blood Gas Puncture Site Left Radial Arterial Blood Carboxyhemoglobin 0.3 Arterial Blood Methemoglobin 0.2 Blood Gas A-a O2 Differential 150.7 H Oxyhemoglobin Percent 95.7 Total Hemoglobin 12.6 Blood Gas Temperature 37.0 Blood Gas Modality MASK - SIMPLE FiO2 39.0 Blood Gas Notified Whom VALERY MILLIGAN Blood Gas Notified Time 09/06/2017 6:30:26 AM Medications Medications Current Medications Ondansetron HCl (Zofran Inj) 4 mg Q6H PRN IV NAUSEA AND/OR VOMITING; Start at 11:46 Acetaminophen (Tylenol Tab) 650 mg Q4H PRN PO PAIN AND OR ELEVATED TEMP; Start 09/02/17 at 16:00 Acetaminophen/ Hydrocodone Bitart ([place] (5/325)) 1 tab Q4H PRN PO PAIN LEVEL 1 -5 Last administered on 09/04/17 20:20; Admin Dose 1 TAB; Start 09/03/17 at 11:45 Acetaminophen/ Hydrocodone Bitart ([place] (5/325)) 2 tab Q4H PRN PO PAIN LEVEL 6 -10; Start 09/03/17 at 11:45 Atenolol (Tenormin) 50 mg DAILY PO Last administered on 09/06/17 09:10; Admin Dose 50 MG; Start 09/03/17 at 09:00 Atorvastatin Calcium (Lipitor) 40 mg QHS PO Last administered on 09/05/17 20: 17; Admin Dose 40 MG; Start 09/03/17 at 21:00 Morphine Sulfate (morphine) 2 mg Q2H PRN IV SEVERE PAIN LEVEL 7-10 Last administered on 09/04/17 06:37; Admin Dose 2 MG; Start 09/03/17 at 09:00 Enoxaparin Sodium (Lovenox) 40 mg DAILY SC Last administered on 09/06/17 09: 24; Admin Dose 40 MG; Start 09/05/17 at 09:00 Furosemide (Lasix) 40 mg DAILY IV Last administered on 09/06/17 09:09; Admin Dose 40 MG; Start 09/05/17 at 10:00 MAD[place] HE Sep 06, 2017 14:44
--- NOTE | 2017-09-06 14:56 | RADRPT ---
Vent Rate: 58 bpm RR Interval: 0 msec CA Interval: 152 msec QRS Duration: 88 msec QT Interval: 424 msec QTC Interval: 416 msec P-R-T [place]: 47 - 32 - 57 degrees Sinus bradycardia Otherwise normal ECG Electronically Signed By: Morales Isaac [id number]
--- NOTE | 2017-09-06 14:56 | RADRPT ---
Vent Rate: 58 bpm RR Interval: 0 msec [place] Interval: 152 msec QRS Duration: 88 msec QT Interval: 424 msec QTC Interval: 416 msec P-R-T [place]: 47 - 32 - 57 degrees Sinus bradycardia Otherwise normal ECG Electronically Signed By: Morales Isaac [id number]
--- NOTE | 2017-09-06 14:56 | RADRPT ---
Vent Rate: 58 bpm RR Interval: 0 msec [place] Interval: 152 msec QRS Duration: 88 msec QT Interval: 424 msec QTC Interval: 416 msec P-R-T [place]: 47 - 32 - 57 degrees Sinus bradycardia Otherwise normal ECG Electronically Signed By: Morales Isaac [id number]
[2017-09-06] MEDS ORDERED: POTASSIUM CHLORIDE 20 MEQ POWDER FOR ORAL SOLN PO ONE (15:00)
--- NOTE | 2017-09-06 16:07 | CONS ---
Date/Time of Note Date/Time of Note DATE: 09/06/17 TIME: 16:05 Assessment/Plan Assessment/Plan Additional Assessment/Plan Acute decompensated congestive heart failure Endometrial cancer status post hysterectomy History of Hypertension History of dyslipidemia -Clinically feeling better with less shortness of breath, chest x-ray still with pulmonary vascular congestion, extra dose of Lasix this afternoon. Maintain potassium above 4.0 and magnesium above 2.0, echocardiogram pending. Consultation Date/Type/Reason Admit Date/Time Sep 02, 2017 at 06:12 Initial Consult Date Type of Consultation: cv 24 HR Interval Summary Free Text/Dictation Feeling better, less shortness of breath, denies chest pain Exam/Review of Systems Vital Signs Vitals Vital Signs Date Time Temp Pulse Resp B/P Pulse Ox O2 Delivery O2 Flow Rate FiO2 09/06/17 14:00 4.0 09/06/17 14:00 55 21 113/72 99 Nasal Cannula 09/06/17 12:00 98.4 09/04/17 00:26 100 Intake and Output 09/05/17 09/05/17 09/06/17 15:00 23:00 07:00 Intake Total 500 ml 280 ml 250 ml Output Total 1000 ml 1300 ml 500 ml Balance -500 ml -1020 ml -250 ml Exam No apparent distress Constitutional: alert, oriented Head: normocephalic Respiratory: other (Coarse breath sounds bilaterally, no wheezing) Cardiovascular: other (S1-S2 heard), regular rate and rhythm Gastrointestinal: bowel sounds, soft Extremities: edema Results Result Diagram: 09/06/1717 09/06/17 0517 Results 24 hrs Laboratory Tests Test 09/06/17 05:17 09/06/17 07:00 White Blood Count 11.3 H Red Blood Count 3.90 L Hemoglobin 11.8 L Hematocrit 34.4 L Mean Corpuscular Volume 88.2 Mean Corpuscular Hemoglobin 30.3 Mean Corpuscular Hemoglobin Concent 34.3 Red Cell Distribution Width 12.0 Platelet Count 259 Mean Platelet Volume 9.8 Neutrophils % 71.4 Lymphocytes % 18.0 Monocytes % 9.1 Eosinophils % 0.7 Basophils % 0.4 Nucleated Red Blood Cells % 0.0 Neutrophils # 8.1 H Lymphocytes # 2.0 Monocytes # 1.0 H Eosinophils # 0.1 Basophils # 0.1 Nucleated Red Blood Cells # 0.0 Sodium Level 139 Potassium Level 3.4 L Chloride Level 99 Carbon Dioxide Level 32 H Anion Gap 11 Blood Urea Nitrogen 13 Creatinine 0.68 Glucose Level 104 Calcium Level 8.6 Phosphorus Level 3.6 Magnesium Level 2.3 Blood Gas Specimen Source Blood arterial Arterial Blood Date Drawn 09/06/2017 6:20:48 AM Arterial Blood pH (Temp corrected) 7.512 H Arterial Blood pCO2 (Temp correct) 37.7 Arterial Blood pO2 (Temp corrected) 83.9 Arterial Blood HCO3 29.5 H Arterial Blood Base Excess 6.3 H Arterial Blood Oxygen Saturation 96.2 Dez Test ACCEPTAB Arterial Blood Gas Puncture Site Left Radial Arterial Blood Carboxyhemoglobin 0.3 Arterial Blood Methemoglobin 0.2 Blood Gas A-a O2 Differential 150.7 H Oxyhemoglobin Percent 95.7 Total Hemoglobin 12.6 Blood Gas Temperature 37.0 Blood Gas Modality MASK - SIMPLE FiO2 39.0 Blood Gas Notified Whom VALERY MILLIGAN Blood Gas Notified Time 09/06/2017 6:30:26 AM Medications Medications Current Medications Ondansetron HCl (Zofran Inj) 4 mg Q6H PRN IV NAUSEA AND/OR VOMITING; Start at 11:46 Acetaminophen (Tylenol Tab) 650 mg Q4H PRN PO PAIN AND OR ELEVATED TEMP; Start 09/02/17 at 16:00 Acetaminophen/ Hydrocodone Bitart ([place] (5/325)) 1 tab Q4H PRN PO PAIN LEVEL 1 -5 Last administered on 09/04/17 20:20; Admin Dose 1 TAB; Start 09/03/17 at 11:45 Acetaminophen/ Hydrocodone Bitart ([place] (5/325)) 2 tab Q4H PRN PO PAIN LEVEL 6 -10; Start 09/03/17 at 11:45 Atenolol (Tenormin) 50 mg DAILY PO Last administered on 09/06/17 09:10; Admin Dose 50 MG; Start 09/03/17 at 09:00 Atorvastatin Calcium (Lipitor) 40 mg QHS PO Last administered on 09/05/17 20: 17; Admin Dose 40 MG; Start 09/03/17 at 21:00 Morphine Sulfate (morphine) 2 mg Q2H PRN IV SEVERE PAIN LEVEL 7-10 Last administered on 09/04/17 06:37; Admin Dose 2 MG; Start 09/03/17 at 09:00 Enoxaparin Sodium (Lovenox) 40 mg DAILY SC Last administered on 09/06/17 09: 24; Admin Dose 40 MG; Start 09/05/17 at 09:00 Furosemide 40 mg 40 mg DAILY IV Last administered on 09/06/17 09:09; Admin Dose 40 MG; Start 09/05/17 at 10:00 Piperacillin Sod/ Tazobactam Sod (Zosyn 3.375gm/ 100 ml (Pmx)) 100 ml @ 25 mls/ hr TID@02,10,18 IVPB ; Start 09/06/17 at 18:00 Rigoberto Vo DO Sep 06, 2017 16:07
[2017-09-06] MEDS ORDERED: FUROSEMIDE 20 MG INJ IV ONE (16:30)
[2017-09-06] MEDS: PIPER-TAZO 3.375 GM IV (PMX) 100 ML IVPB SCH (18:48)
[2017-09-06] MEDS: ATORVASTATIN 40 MG TAB PO SCH (21:10)
--- NOTE | 2017-09-06 21:25 | PN ---
Date/Time of Note Date/Time of Note DATE: 09/06/17 TIME: 21:23 Assessment/Plan VTE Prophylaxis VTE Prophylaxis Intervention: LMWH Lines/Catheters IV C[facility]ter Type (from [facility] Saline Lock Urinary Cath still in place: No Assessment/Plan Chief Complaint/Hosp Course endometrial ca Problems: Assessment/Plan A- improved P - agree with transfer and mobilize Subjective 24 Hr Interval Summary Free Text/Dictation Eating better and no SOB. Occasionally OOB. Exam/Review of Systems Vital Signs Vitals Vital Signs Date Time Temp Pulse Resp B/P Pulse Ox O2 Delivery O2 Flow Rate FiO2 09/06/17 21:09 4.0 09/06/17 20:00 61 09/06/17 19:48 98.1 18 131/67 90 09/06/17 17:55 Nasal Cannula 09/04/17 00:26 100 Intake and Output 09/05/17 09/05/17 09/06/17 15:00 23:00 07:00 Intake Total 500 ml 280 ml 250 ml Output Total 1000 ml 1300 ml 500 ml Balance -500 ml -1020 ml -250 ml Exam Resp- clear Cvz- NSR Abd- NT Ext-NT no edema Results Result Diagram: 09/06/17 0517 09/06/17 0517 Results 24 hrs Laboratory Tests Test 09/06/17 05:17 09/06/17 07:00 White Blood Count 11.3 H Red Blood Count 3.90 L Hemoglobin 11.8 L Hematocrit 34.4 L Mean Corpuscular Volume 88.2 Mean Corpuscular Hemoglobin 30.3 Mean Corpuscular Hemoglobin Concent 34.3 Red Cell Distribution Width 12.0 Platelet Count 259 Mean Platelet Volume 9.8 Neutrophils % 71.4 Lymphocytes % 18.0 Monocytes % 9.1 Eosinophils % 0.7 Basophils % 0.4 Nucleated Red Blood Cells % 0.0 Neutrophils # 8.1 H Lymphocytes # 2.0 Monocytes # 1.0 H Eosinophils # 0.1 Basophils # 0.1 Nucleated Red Blood Cells # 0.0 Sodium Level 139 Potassium Level 3.4 L Chloride Level 99 Carbon Dioxide Level 32 H Anion Gap 11 Blood Urea Nitrogen 13 Creatinine 0.68 Glucose Level 104 Calcium Level 8.6 Phosphorus Level 3.6 Magnesium Level 2.3 Blood Gas Specimen Source Blood arterial Arterial Blood Date Drawn 09/06/2017 6:20:48 AM Arterial Blood pH (Temp corrected) 7.512 H Arterial Blood pCO2 (Temp correct) 37.7 Arterial Blood pO2 (Temp corrected) 83.9 Arterial Blood HCO3 29.5 H Arterial Blood Base Excess 6.3 H Arterial Blood Oxygen Saturation 96.2 Dez Test ACCEPTAB Arterial Blood Gas Puncture Site Left Radial Arterial Blood Carboxyhemoglobin 0.3 Arterial Blood Methemoglobin 0.2 Blood Gas A-a O2 Differential 150.7 H Oxyhemoglobin Percent 95.7 Total Hemoglobin 12.6 Blood Gas Temperature 37.0 Blood Gas Modality MASK - SIMPLE FiO2 39.0 Blood Gas Notified Whom VALERY OPERATING COST CLERK Blood Gas Notified Time 09/06/2017 6:30:26 AM Medications Medications Current Medications Ondansetron HCl (Zofran Inj) 4 mg Q6H PRN IV NAUSEA AND/OR VOMITING; Start at 11:46 Acetaminophen (Tylenol Tab) 650 mg Q4H PRN PO PAIN AND OR ELEVATED TEMP; Start 09/02/17 at 16:00 Acetaminophen/ Hydrocodone Bitart ([place] (5/325)) 1 tab Q4H PRN PO PAIN LEVEL 1 -5 Last administered on 09/04/17 20:20; Admin Dose 1 TAB; Start 09/03/17 at 11:45 Acetaminophen/ Hydrocodone Bitart ([place] (5/325)) 2 tab Q4H PRN PO PAIN LEVEL 6 -10; Start 09/03/17 at 11:45 Atenolol (Tenormin) 50 mg DAILY PO Last administered on 09/06/17 09:10; Admin Dose 50 MG; Start 09/03/17 at 09:00 Atorvastatin Calcium (Lipitor) 40 mg QHS PO Last administered on 09/06/17 21: 10; Admin Dose 40 MG; Start 09/03/17 at 21:00 Morphine Sulfate (morphine) 2 mg Q2H PRN IV SEVERE PAIN LEVEL 7-10 Last administered on 09/04/17 06:37; Admin Dose 2 MG; Start 09/03/17 at 09:00 Enoxaparin Sodium (Lovenox) 40 mg DAILY SC Last administered on 09/06/17 09: 24; Admin Dose 40 MG; Start 09/05/17 at 09:00 Furosemide 40 mg 40 mg DAILY IV Last administered on 09/06/17 09:09; Admin Dose 40 MG; Start 09/05/17 at 10:00 Piperacillin Sod/ Tazobactam Sod (Zosyn 3.375gm/ 100 ml (Pmx)) 100 ml @ 25 mls/ hr TID@ IVPB Last administered on 09/06/17t 18:48; Admin Dose 25 MLS/ HR; Start 09/06/17 at 18:00 NUNO HECTOR MD Sep 06, 2017 21:25
--- NOTE | 2017-09-06 21:25 | PN ---
Date/Time of Note Date/Time of Note DATE: 09/06/17 TIME: 21:23 Assessment/Plan VTE Prophylaxis VTE Prophylaxis Intervention: LMWH Lines/Catheters IV [facility] (from [facility] Saline Lock Urinary Cath still in place: No Assessment/Plan Chief Complaint/Hosp Course endometrial ca Problems: Assessment/Plan A- improved P - agree with transfer and mobilize Subjective 24 Hr Interval Summary Free Text/Dictation Eating better and no SOB. Occasionally OOB. Exam/Review of Systems Vital Signs Vitals Vital Signs Date Time Temp Pulse Resp B/P Pulse Ox O2 Delivery O2 Flow Rate FiO2 09/06/17 21:09 4.0 09/06/17 20:00 61 09/06/17 19:48 98.1 18 131/67 90 09/06/17 17:55 Nasal Cannula 09/04/17 00:26 100 Intake and Output 09/05/17 09/05/17 09/06/17 15:00 23:00 07:00 Intake Total 500 ml 280 ml 250 ml Output Total 1000 ml 1300 ml 500 ml Balance -500 ml -1020 ml -250 ml Exam Resp- clear Cvz- NSR Abd- NT Ext-NT no edema Results Result Diagram: 09/06/17 0517 09/06/17 0517 Results 24 hrs Laboratory Tests Test 09/06/17 05:17 09/06/17 07:00 White Blood Count 11.3 H Red Blood Count 3.90 L Hemoglobin 11.8 L Hematocrit 34.4 L Mean Corpuscular Volume 88.2 Mean Corpuscular Hemoglobin 30.3 Mean Corpuscular Hemoglobin Concent 34.3 Red Cell Distribution Width 12.0 Platelet Count 259 Mean Platelet Volume 9.8 Neutrophils % 71.4 Lymphocytes % 18.0 Monocytes % 9.1 Eosinophils % 0.7 Basophils % 0.4 Nucleated Red Blood Cells % 0.0 Neutrophils # 8.1 H Lymphocytes # 2.0 Monocytes # 1.0 H Eosinophils # 0.1 Basophils # 0.1 Nucleated Red Blood Cells # 0.0 Sodium Level 139 Potassium Level 3.4 L Chloride Level 99 Carbon Dioxide Level 32 H Anion Gap 11 Blood Urea Nitrogen 13 Creatinine 0.68 Glucose Level 104 Calcium Level 8.6 Phosphorus Level 3.6 Magnesium Level 2.3 Blood Gas Specimen Source Blood arterial Arterial Blood Date Drawn 09/06/2017 6:20:48 AM Arterial Blood pH (Temp corrected) 7.512 H Arterial Blood pCO2 (Temp correct) 37.7 Arterial Blood pO2 (Temp corrected) 83.9 Arterial Blood HCO3 29.5 H Arterial Blood Base Excess 6.3 H Arterial Blood Oxygen Saturation 96.2 Dez Test ACCEPTAB Arterial Blood Gas Puncture Site Left Radial Arterial Blood Carboxyhemoglobin 0.3 Arterial Blood Methemoglobin 0.2 Blood Gas A-a O2 Differential 150.7 H Oxyhemoglobin Percent 95.7 Total Hemoglobin 12.6 Blood Gas Temperature 37.0 Blood Gas Modality MASK - SIMPLE FiO2 39.0 Blood Gas Notified Whom VALERY MIRROR DEPARTMENT SUPERVISOR Blood Gas Notified Time 09/06/2017 6:30:26 AM Medications Medications Current Medications Ondansetron HCl (Zofran Inj) 4 mg Q6H PRN IV NAUSEA AND/OR VOMITING; Start at 11:46 Acetaminophen (Tylenol Tab) 650 mg Q4H PRN PO PAIN AND OR ELEVATED TEMP; Start 09/02/17 at 16:00 Acetaminophen/ Hydrocodone Bitart ([place] (5/325)) 1 tab Q4H PRN PO PAIN LEVEL 1 -5 Last administered on 09/04/17 20:20; Admin Dose 1 TAB; Start 09/03/17 at 11:45 Acetaminophen/ Hydrocodone Bitart ([place] (5/325)) 2 tab Q4H PRN PO PAIN LEVEL 6 -10; Start 09/03/17 at 11:45 Atenolol (Tenormin) 50 mg DAILY PO Last administered on 09/06/17 09:10; Admin Dose 50 MG; Start 09/03/17 at 09:00 Atorvastatin Calcium (Lipitor) 40 mg QHS PO Last administered on 09/06/17 21: 10; Admin Dose 40 MG; Start 09/03/17 at 21:00 Morphine Sulfate (morphine) 2 mg Q2H PRN IV SEVERE PAIN LEVEL 7-10 Last administered on 09/04/17 06:37; Admin Dose 2 MG; Start 09/03/17 at 09:00 Enoxaparin Sodium (Lovenox) 40 mg DAILY SC Last administered on 09/06/17 09: 24; Admin Dose 40 MG; Start 09/05/17 at 09:00 Furosemide 40 mg 40 mg DAILY IV Last administered on 09/06/17 09:09; Admin Dose 40 MG; Start 09/05/17 at 10:00 Piperacillin Sod/ Tazobactam Sod (Zosyn 3.375gm/ 100 ml (Pmx)) 100 ml @ 25 mls/ hr TID@ IVPB Last administered on 09/06/17t 18:48; Admin Dose 25 MLS/ HR; Start 09/06/17 at 18:00 NUNO HECTOR MD Sep 06, 2017 21:25
--- NOTE | 2017-09-06 21:25 | PN ---
Date/Time of Note Date/Time of Note DATE: 09/06/17 TIME: 21:23 Assessment/Plan VTE Prophylaxis VTE Prophylaxis Intervention: LMWH Lines/Catheters IV C[facility] Type (from [facility] Saline Lock Urinary Cath still in place: No Assessment/Plan Chief Complaint/Hosp Course endometrial ca Problems: Assessment/Plan A- improved P - agree with transfer and mobilize Subjective 24 Hr Interval Summary Free Text/Dictation Eating better and no SOB. Occasionally OOB. Exam/Review of Systems Vital Signs Vitals Vital Signs Date Time Temp Pulse Resp B/P Pulse Ox O2 Delivery O2 Flow Rate FiO2 09/06/17 21:09 4.0 09/06/17 20:00 61 09/06/17 19:48 98.1 18 131/67 90 09/06/17 17:55 Nasal Cannula 09/04/17 00:26 100 Intake and Output 09/05/17 09/05/17 09/06/17 15:00 23:00 07:00 Intake Total 500 ml 280 ml 250 ml Output Total 1000 ml 1300 ml 500 ml Balance -500 ml -1020 ml -250 ml Exam Resp- clear Cvz- NSR Abd- NT Ext-NT no edema Results Result Diagram: 09/06/17 0517 09/06/17 0517 Results 24 hrs Laboratory Tests Test 09/06/17 05:17 09/06/17 07:00 White Blood Count 11.3 H Red Blood Count 3.90 L Hemoglobin 11.8 L Hematocrit 34.4 L Mean Corpuscular Volume 88.2 Mean Corpuscular Hemoglobin 30.3 Mean Corpuscular Hemoglobin Concent 34.3 Red Cell Distribution Width 12.0 Platelet Count 259 Mean Platelet Volume 9.8 Neutrophils % 71.4 Lymphocytes % 18.0 Monocytes % 9.1 Eosinophils % 0.7 Basophils % 0.4 Nucleated Red Blood Cells % 0.0 Neutrophils # 8.1 H Lymphocytes # 2.0 Monocytes # 1.0 H Eosinophils # 0.1 Basophils # 0.1 Nucleated Red Blood Cells # 0.0 Sodium Level 139 Potassium Level 3.4 L Chloride Level 99 Carbon Dioxide Level 32 H Anion Gap 11 Blood Urea Nitrogen 13 Creatinine 0.68 Glucose Level 104 Calcium Level 8.6 Phosphorus Level 3.6 Magnesium Level 2.3 Blood Gas Specimen Source Blood arterial Arterial Blood Date Drawn 09/06/2017 6:20:48 AM Arterial Blood pH (Temp corrected) 7.512 H Arterial Blood pCO2 (Temp correct) 37.7 Arterial Blood pO2 (Temp corrected) 83.9 Arterial Blood HCO3 29.5 H Arterial Blood Base Excess 6.3 H Arterial Blood Oxygen Saturation 96.2 Dez Test ACCEPTAB Arterial Blood Gas Puncture Site Left Radial Arterial Blood Carboxyhemoglobin 0.3 Arterial Blood Methemoglobin 0.2 Blood Gas A-a O2 Differential 150.7 H Oxyhemoglobin Percent 95.7 Total Hemoglobin 12.6 Blood Gas Temperature 37.0 Blood Gas Modality MASK - SIMPLE FiO2 39.0 Blood Gas Notified Whom VALERY PALS NURSE Blood Gas Notified Time 09/06/2017 6:30:26 AM Medications Medications Current Medications Ondansetron HCl (Zofran Inj) 4 mg Q6H PRN IV NAUSEA AND/OR VOMITING; Start at 11:46 Acetaminophen (Tylenol Tab) 650 mg Q4H PRN PO PAIN AND OR ELEVATED TEMP; Start 09/02/17 at 16:00 Acetaminophen/ Hydrocodone Bitart ([place] (5/325)) 1 tab Q4H PRN PO PAIN LEVEL 1 -5 Last administered on 09/04/17 20:20; Admin Dose 1 TAB; Start 09/03/17 at 11:45 Acetaminophen/ Hydrocodone Bitart ([place] (5/325)) 2 tab Q4H PRN PO PAIN LEVEL 6 -10; Start 09/03/17 at 11:45 Atenolol (Tenormin) 50 mg DAILY PO Last administered on 09/06/17 09:10; Admin Dose 50 MG; Start 09/03/17 at 09:00 Atorvastatin Calcium (Lipitor) 40 mg QHS PO Last administered on 09/06/17 21: 10; Admin Dose 40 MG; Start 09/03/17 at 21:00 Morphine Sulfate (morphine) 2 mg Q2H PRN IV SEVERE PAIN LEVEL 7-10 Last administered on 09/04/17 06:37; Admin Dose 2 MG; Start 09/03/17 at 09:00 Enoxaparin Sodium (Lovenox) 40 mg DAILY SC Last administered on 09/06/17 09: 24; Admin Dose 40 MG; Start 09/05/17 at 09:00 Furosemide 40 mg 40 mg DAILY IV Last administered on 09/06/17 09:09; Admin Dose 40 MG; Start 09/05/17 at 10:00 Piperacillin Sod/ Tazobactam Sod (Zosyn 3.375gm/ 100 ml (Pmx)) 100 ml @ 25 mls/ hr TID@ IVPB Last administered on 09/06/17t 18:48; Admin Dose 25 MLS/ HR; Start 09/06/17 at 18:00 NUNO HECTOR MD Sep 06, 2017 21:25
[2017-09-07] VITALS (11 sets, daily range): BP systolic 110–129; BP diastolic 57–68; PULSE 52–64; RESP 17–20
[2017-09-07] MEDS: PIPER-TAZO 3.375 GM IV (PMX) 100 ML IVPB SCH ×3 (02:08→18:16)
[2017-09-07] MEDS: FUROSEMIDE 40 MG INJ IV SCH (09:28)
[2017-09-07] MEDS: ATENOLOL 50 MG TAB PO SCH (09:29)
[2017-09-07] MEDS: ENOXAPARIN 40 MG/0.4 ML SYG SC SCH (09:42)
--- NOTE | 2017-09-07 10:17 | RADRPT ---
Echocardiogram Report Patient Name: SYDNEE MENDEZ Gender: Female Date: 1945 Study Date: 06-Sep-2017 Java Swing Developer: Lawrence [facility] Location: 119-A Ref. Physician: RIGOBERTO VO Quality: Adequate Procedures: Transthoracic echocardiogram with complete 2D, M-Mode, and doppler examination. Indications: Congestive Heart Failure. 2D/M Mode Doppler Measurement Value Normal Ranges Measurement Value Normal Ranges LVIDd 2D 4.5 3.5 - 5.6 cm AV Peak David 2.1 m/sec LVIDs 2D 2.7 2.1 - 4.1 cm AV Peak PG 17.0 mmHg FS 2D 39.3 % LVOT Peak David 1.3 m/sec LVPWd 2D 1.3 0.6 - 1.1 cm LVOT Peak PG 6.0 mmHg IVSd 2D 1.2 0.6 - 1.1 cm MV E Peak David 1.1 m/sec IVS/LVPW 2D 0.9 MV A Peak David 1.3 m/sec AoR Diam 2D 2.5 2.0 - 3.7 cm MV E/A 0.8 LA/Ao 2D 1 0 - 1 MV Decel Time 225 msec EDV 2D 89.9 cm3 MV E/A 0.8 ESV 2D 20.1 cm3 TR Peak David 2.8 m/sec LA Dimen 2D 3.6 2.3 - 4.0 cm TR Peak PG 31.0 mmHg RVSP 34.0 mmHg Findings Left Ventricle: Normal left ventricular systolic function. Normal left ventricular cavity size. Moderate concentric left ventricular hypertrophy. Ejection fraction is visually estimated at 60 %. Tissue Doppler/Mitral Doppler indices are consistent with impaired relaxation (Stage I diastolic dysfunction). Right Ventricle: Normal right ventricular size. Normal right ventricular systolic function. Left Atrium: The left atrium is normal in size. Right Atrium: The right atrium is normal in size. Mitral Valve: Mild mitral leaflet calcification. Mild mitral annular calcification. Mild mitral valve regurgitation. Aortic Valve: Normal appearance of the aortic valve. No significant aortic stenosis or insufficiency. Tricuspid Valve: Normal appearance of the tricuspid valve. Estimated peak PA systolic pressure 34 mmHg. There is mild tricuspid regurgitation. Pulmonic Valve: Pulmonic valve not well visualized. There is trace pulmonic regurgitation. Pericardium: Normal pericardium with no significant pericardial effusion. Aorta: Normal aortic root. IVC: Normal size and normal respiratory collapse consistent with normal right atrial pressure. Conclusions Normal left ventricular systolic function. Normal left ventricular cavity size. Moderate concentric left ventricular hypertrophy. Ejection fraction is visually estimated at 60 %. Tissue Doppler/Mitral Doppler indices are consistent with impaired relaxation (Stage I diastolic dysfunction). Normal right ventricular size. Normal right ventricular systolic function. The left atrium is normal in size. The right atrium is normal in size. Mild mitral valve regurgitation. No significant aortic stenosis or insufficiency. Estimated peak PA systolic pressure 34 mmHg. There is mild tricuspid regurgitation. Normal pericardium with no significant pericardial effusion. Electronically Signed By: Rigoberto Vo 07-Sep-2017 10:14:44 -0700 Patient Name: SYDNEE MENDEZ Study Date: 06-Sep-2017 [id number]
--- NOTE | 2017-09-07 10:17 | RADRPT ---
Echocardiogram Report Patient Name: SYDNEE MENDEZ Gender: Female Date: 1945 Study Date: 06-Sep-2017 [employer] Director: Lawrence [facility] Location: 119-A Ref. Physician: RIGOBERTO VO Quality: Adequate Procedures: Transthoracic echocardiogram with complete 2D, M-Mode, and doppler examination. Indications: Congestive Heart Failure. 2D/M Mode Doppler Measurement Value Normal Ranges Measurement Value Normal Ranges LVIDd 2D 4.5 3.5 - 5.6 cm AV Peak David 2.1 m/sec LVIDs 2D 2.7 2.1 - 4.1 cm AV Peak PG 17.0 mmHg FS 2D 39.3 % LVOT Peak David 1.3 m/sec LVPWd 2D 1.3 0.6 - 1.1 cm LVOT Peak PG 6.0 mmHg IVSd 2D 1.2 0.6 - 1.1 cm MV E Peak David 1.1 m/sec IVS/LVPW 2D 0.9 MV A Peak David 1.3 m/sec AoR Diam 2D 2.5 2.0 - 3.7 cm MV E/A 0.8 LA/Ao 2D 1 0 - 1 MV Decel Time 225 msec EDV 2D 89.9 cm3 MV E/A 0.8 ESV 2D 20.1 cm3 TR Peak David 2.8 m/sec LA Dimen 2D 3.6 2.3 - 4.0 cm TR Peak PG 31.0 mmHg RVSP 34.0 mmHg Findings Left Ventricle: Normal left ventricular systolic function. Normal left ventricular cavity size. Moderate concentric left ventricular hypertrophy. Ejection fraction is visually estimated at 60 %. Tissue Doppler/Mitral Doppler indices are consistent with impaired relaxation (Stage I diastolic dysfunction). Right Ventricle: Normal right ventricular size. Normal right ventricular systolic function. Left Atrium: The left atrium is normal in size. Right Atrium: The right atrium is normal in size. Mitral Valve: Mild mitral leaflet calcification. Mild mitral annular calcification. Mild mitral valve regurgitation. Aortic Valve: Normal appearance of the aortic valve. No significant aortic stenosis or insufficiency. Tricuspid Valve: Normal appearance of the tricuspid valve. Estimated peak PA systolic pressure 34 mmHg. There is mild tricuspid regurgitation. Pulmonic Valve: Pulmonic valve not well visualized. There is trace pulmonic regurgitation. Pericardium: Normal pericardium with no significant pericardial effusion. Aorta: Normal aortic root. IVC: Normal size and normal respiratory collapse consistent with normal right atrial pressure. Conclusions Normal left ventricular systolic function. Normal left ventricular cavity size. Moderate concentric left ventricular hypertrophy. Ejection fraction is visually estimated at 60 %. Tissue Doppler/Mitral Doppler indices are consistent with impaired relaxation (Stage I diastolic dysfunction). Normal right ventricular size. Normal right ventricular systolic function. The left atrium is normal in size. The right atrium is normal in size. Mild mitral valve regurgitation. No significant aortic stenosis or insufficiency. Estimated peak PA systolic pressure 34 mmHg. There is mild tricuspid regurgitation. Normal pericardium with no significant pericardial effusion. Electronically Signed By: Rigoberto Vo 07-Sep-2017 10:14:44 -0700 Patient Name: SYDNEE MENDEZ Study Date: 06-Sep-2017 [id number]
--- NOTE | 2017-09-07 10:17 | RADRPT ---
Echocardiogram Report Patient Name: SYDNEE MENDEZ Gender: Female Date: 1945 Study Date: 06-Sep-2017 Engineering Model Maker: Lawrence [facility] Location: 119-A Ref. Physician: RIGOBERTO VO Quality: Adequate Procedures: Transthoracic echocardiogram with complete 2D, M-Mode, and doppler examination. Indications: Congestive Heart Failure. 2D/M Mode Doppler Measurement Value Normal Ranges Measurement Value Normal Ranges LVIDd 2D 4.5 3.5 - 5.6 cm AV Peak David 2.1 m/sec LVIDs 2D 2.7 2.1 - 4.1 cm AV Peak PG 17.0 mmHg FS 2D 39.3 % LVOT Peak David 1.3 m/sec LVPWd 2D 1.3 0.6 - 1.1 cm LVOT Peak PG 6.0 mmHg IVSd 2D 1.2 0.6 - 1.1 cm MV E Peak David 1.1 m/sec IVS/LVPW 2D 0.9 MV A Peak David 1.3 m/sec AoR Diam 2D 2.5 2.0 - 3.7 cm MV E/A 0.8 LA/Ao 2D 1 0 - 1 MV Decel Time 225 msec EDV 2D 89.9 cm3 MV E/A 0.8 ESV 2D 20.1 cm3 TR Peak David 2.8 m/sec LA Dimen 2D 3.6 2.3 - 4.0 cm TR Peak PG 31.0 mmHg RVSP 34.0 mmHg Findings Left Ventricle: Normal left ventricular systolic function. Normal left ventricular cavity size. Moderate concentric left ventricular hypertrophy. Ejection fraction is visually estimated at 60 %. Tissue Doppler/Mitral Doppler indices are consistent with impaired relaxation (Stage I diastolic dysfunction). Right Ventricle: Normal right ventricular size. Normal right ventricular systolic function. Left Atrium: The left atrium is normal in size. Right Atrium: The right atrium is normal in size. Mitral Valve: Mild mitral leaflet calcification. Mild mitral annular calcification. Mild mitral valve regurgitation. Aortic Valve: Normal appearance of the aortic valve. No significant aortic stenosis or insufficiency. Tricuspid Valve: Normal appearance of the tricuspid valve. Estimated peak PA systolic pressure 34 mmHg. There is mild tricuspid regurgitation. Pulmonic Valve: Pulmonic valve not well visualized. There is trace pulmonic regurgitation. Pericardium: Normal pericardium with no significant pericardial effusion. Aorta: Normal aortic root. IVC: Normal size and normal respiratory collapse consistent with normal right atrial pressure. Conclusions Normal left ventricular systolic function. Normal left ventricular cavity size. Moderate concentric left ventricular hypertrophy. Ejection fraction is visually estimated at 60 %. Tissue Doppler/Mitral Doppler indices are consistent with impaired relaxation (Stage I diastolic dysfunction). Normal right ventricular size. Normal right ventricular systolic function. The left atrium is normal in size. The right atrium is normal in size. Mild mitral valve regurgitation. No significant aortic stenosis or insufficiency. Estimated peak PA systolic pressure 34 mmHg. There is mild tricuspid regurgitation. Normal pericardium with no significant pericardial effusion. Electronically Signed By: Rigoberto Vo 07-Sep-2017 10:14:44 -0700 Patient Name: SYDNEE MENDEZ Study Date: 06-Sep-2017 [id number]
--- NOTE | 2017-09-07 12:41 | PN ---
Date/Time of Note Date/Time of Note DATE: 09/07/17 TIME: 12:38 Assessment/Plan VTE Prophylaxis VTE Prophylaxis Intervention: LMWH Lines/Catheters [facility]from [facility] Urinary Cath still in place: No Assessment/Plan Chief Complaint/Hosp Course endometrial ca Problems: Assessment/Plan A- clinically improved P- discuss with IM. Subjective 24 Hr Interval Summary Free Text/Dictation Feels better with no SOB and eats well. Exam/Review of Systems Vital Signs Vitals Vital Signs Date Time Temp Pulse Resp B/P Pulse Ox O2 Delivery O2 Flow Rate FiO2 09/07/17 11:39 98.5 20 115/57 98 09/07/17 09:41 4.0 09/07/17 08:00 59 09/06/17 20:00 Nasal Cannula 09/04/17 00:26 100 Intake and Output 09/06/17 09/06/17 09/07/17 15:00 23:00 07:00 Intake Total 600 ml 250 ml 100 ml Output Total 1300 ml 400 ml Balance -700 ml -150 ml 100 ml Exam Resp- symmetric and nt CVS- NSR Abd- NT clean Ext- NT no edema Results Result Diagram: 09/07/17 0644 09/07/17 0644 Results 24 hrs Laboratory Tests Test 09/07/17 06:44 White Blood Count 9.6 Red Blood Count 4.20 Hemoglobin 12.2 Hematocrit 36.4 L Mean Corpuscular Volume 86.7 Mean Corpuscular Hemoglobin 29.0 Mean Corpuscular Hemoglobin Concent 33.5 Red Cell Distribution Width 12.1 Platelet Count 321 # Mean Platelet Volume 9.7 Neutrophils % 61.5 Lymphocytes % 24.0 Monocytes % 12.0 H Eosinophils % 1.7 Basophils % 0.6 Nucleated Red Blood Cells % 0.0 Neutrophils # 5.9 Lymphocytes # 2.3 Monocytes # 1.2 H Eosinophils # 0.2 Basophils # 0.1 Nucleated Red Blood Cells # 0.0 Sodium Level 140 Potassium Level 3.6 Chloride Level 102 Carbon Dioxide Level 28 Anion Gap 14 Blood Urea Nitrogen 14 Creatinine 0.78 Glucose Level 104 Calcium Level 9.2 Medications Medications Current Medications Ondansetron HCl (Zofran Inj) 4 mg Q6H PRN IV NAUSEA AND/OR VOMITING; Start at 11:46 Acetaminophen (Tylenol Tab) 650 mg Q4H PRN PO PAIN AND OR ELEVATED TEMP; Start 09/02/17 at 16:00 Acetaminophen/ Hydrocodone Bitart ([place] (5/325)) 1 tab Q4H PRN PO PAIN LEVEL 1 -5 Last administered on 09/04/17 20:20; Admin Dose 1 TAB; Start 09/03/17 at 11:45 Acetaminophen/ Hydrocodone Bitart ([place] (5/325)) 2 tab Q4H PRN PO PAIN LEVEL 6 -10; Start 09/03/17 at 11:45 Atenolol (Tenormin) 50 mg DAILY PO Last administered on 09/07/17 09:29; Admin Dose 50 MG; Start 09/03/17 at 09:00 Atorvastatin Calcium (Lipitor) 40 mg QHS PO Last administered on 09/06/17 21: 10; Admin Dose 40 MG; Start 09/03/17 at 21:00 Morphine Sulfate (morphine) 2 mg Q2H PRN IV SEVERE PAIN LEVEL 7-10 Last administered on 09/04/17 06:37; Admin Dose 2 MG; Start 09/03/17 at 09:00 Enoxaparin Sodium (Lovenox) 40 mg DAILY SC Last administered on 09/07/17 09:42 ; Admin Dose 40 MG; Start 09/05/17 at 09:00 Furosemide 40 mg 40 mg DAILY IV Last administered on 09/07/17 09:28; Admin Dose 40 MG; Start 09/05/17 at 10:00 Piperacillin Sod/ Tazobactam Sod (Zosyn 3.375gm/ 100 ml (Pmx)) 100 ml @ 25 mls/ hr TID@,18 IVPB Last administered on 09/07/17 09:29; Admin Dose 25 MLS/HR ; Start 09/06/17 at 18:00 NUNO HECTOR MD Sep 07, 2017 12:41
[2017-09-07] MEDS ORDERED: POTASSIUM CHLORIDE (SR) 20 MEQ TAB PO STA (12:58)
--- NOTE | 2017-09-07 13:17 | CONS ---
Date/Time of Note Date/Time of Note DATE: 09/07/17 TIME: 13:16 Assessment/Plan Assessment/Plan Additional Assessment/Plan Acute decompensated diastolic congestive heart failure Preserved ejection fraction Endometrial cancer status post hysterectomy History of Hypertension History of dyslipidemia -Clinically feeling better with less shortness of breath, extra dose of Lasix this afternoon and switch to p.o. Maintain potassium above 4.0 and magnesium above 2.0. Consultation Date/Type/Reason Admit Date/Time Sep 02, 2017 at 06:12 Type of Consultation: cv 24 HR Interval Summary Free Text/Dictation Continues to feel better, and relating without shortness of breath or chest pain Exam/Review of Systems Vital Signs Vitals Vital Signs Date Time Temp Pulse Resp B/P Pulse Ox O2 Delivery O2 Flow Rate FiO2 09/07/17 11:39 98.5 20 115/57 98 09/07/17 09:41 4.0 09/07/17 08:00 59 09/06/17 20:00 Nasal Cannula 09/04/17 00:26 100 Intake and Output 09/06/17 09/06/17 09/07/17 15:00 23:00 07:00 Intake Total 600 ml 250 ml 100 ml Output Total 1300 ml 400 ml Balance -700 ml -150 ml 100 ml Exam No apparent distress, family at bedside Constitutional: alert, oriented Head: normocephalic Respiratory: other (Coarse breath sounds bilaterally, no wheezing) Cardiovascular: other (S1-S2 heard), regular rate and rhythm Gastrointestinal: bowel sounds, non-tender, soft Extremities: other (No significant edema) Results Result Diagram: 09/07/17 0644 09/07/17 0644 Results 24 hrs Laboratory Tests Test 09/07/17 06:44 White Blood Count 9.6 Red Blood Count 4.20 Hemoglobin 12.2 Hematocrit 36.4 L Mean Corpuscular Volume 86.7 Mean Corpuscular Hemoglobin 29.0 Mean Corpuscular Hemoglobin Concent 33.5 Red Cell Distribution Width 12.1 Platelet Count 321 # Mean Platelet Volume 9.7 Neutrophils % 61.5 Lymphocytes % 24.0 Monocytes % 12.0 H Eosinophils % 1.7 Basophils % 0.6 Nucleated Red Blood Cells % 0.0 Neutrophils # 5.9 Lymphocytes # 2.3 Monocytes # 1.2 H Eosinophils # 0.2 Basophils # 0.1 Nucleated Red Blood Cells # 0.0 Sodium Level 140 Potassium Level 3.6 Chloride Level 102 Carbon Dioxide Level 28 Anion Gap 14 Blood Urea Nitrogen 14 Creatinine 0.78 Glucose Level 104 Calcium Level 9.2 Medications Medications Current Medications Ondansetron HCl (Zofran Inj) 4 mg Q6H PRN IV NAUSEA AND/OR VOMITING; Start at 11:46 Acetaminophen (Tylenol Tab) 650 mg Q4H PRN PO PAIN AND OR ELEVATED TEMP; Start 09/02/17 at 16:00 Acetaminophen/ Hydrocodone Bitart ([place] (5/325)) 1 tab Q4H PRN PO PAIN LEVEL 1 -5 Last administered on 09/04/17 20:20; Admin Dose 1 TAB; Start 09/03/17 at 11:45 Acetaminophen/ Hydrocodone Bitart ([place] (5/325)) 2 tab Q4H PRN PO PAIN LEVEL 6 -10; Start 09/03/17 at 11:45 Atenolol (Tenormin) 50 mg DAILY PO Last administered on 09/07/17 09:29; Admin Dose 50 MG; Start 09/03/17 at 09:00 Atorvastatin Calcium (Lipitor) 40 mg QHS PO Last administered on 09/06/17 21: 10; Admin Dose 40 MG; Start 09/03/17 at 21:00 Morphine Sulfate (morphine) 2 mg Q2H PRN IV SEVERE PAIN LEVEL 7-10 Last administered on 09/04/17 06:37; Admin Dose 2 MG; Start 09/03/17 at 09:00 Enoxaparin Sodium 40 mg 40 mg DAILY SC Last administered on 09/07/17 09:42; Admin Dose 40 MG; Start 09/05/17 at 09:00 Piperacillin Sod/ Tazobactam Sod (Zosyn 3.375gm/ 100 ml (Pmx)) 100 ml @ 25 mls/ hr TID@02,,18 IVPB Last administered on 09/07/17 09:29; Admin Dose 25 MLS/HR ; Start 09/06/17 at 18:00 Furosemide (Lasix) 20 mg ONCE ONCE IV ; Start 09/07/17 at 15:00; Stop 09/07/17 at 15:01 Furosemide (Lasix) 40 mg DAILY PO ; Start 09/08/17 at 09:00 Rigoberto Vo DO Sep 07, 2017 13:17
--- NOTE | 2017-09-07 13:55 | CONS ---
Date/Time of Note Date/Time of Note DATE: 09/07/17 TIME: 13:51 Consult Date/Type/Reason Admit Date/Time Sep 02, 2017 at 06:12 Type of Consultation: Pulmonary Subjective Improving oxygenation now requiring 3-4 L nasal cannula. Objective Vital Signs Date Time Temp Pulse Resp B/P Pulse Ox O2 Delivery O2 Flow Rate FiO2 09/07/17 12:00 52 09/07/17 11:39 98.5 20 115/57 98 09/07/17 09:41 4.0 09/07/17 08:30 Nasal Cannula 09/04/17 00:26 100 Intake and Output 09/06/17 09/06/17 09/07/17 15:00 23:00 07:00 Intake Total 600 ml 250 ml 100 ml Output Total 1300 ml 400 ml Balance -700 ml -150 ml 100 ml Exam PHYSICAL EXAMINATION: GENERAL: Well-nourished, well-developed lady, comfortable at rest on nonrebreather, talking in full and complete sentences. VITAL SIGNS: NECK: Supple. No JVD or lymphadenopathy. CARDIAC: S1, S2, no added sounds or murmurs. CHEST: Diminished air entry bilaterally. ABDOMEN: Soft, nontender. No guarding or rebound. EXTREMITIES: No cyanosis, clubbing, edema. NEUROLOGIC: Generalized weakness. Results/Medications Result Diagram: 09/07/17 0644 09/07/17 0644 Results 24 hrs Laboratory Tests Test 09/07/17 06:44 White Blood Count 9.6 Red Blood Count 4.20 Hemoglobin 12.2 Hematocrit 36.4 L Mean Corpuscular Volume 86.7 Mean Corpuscular Hemoglobin 29.0 Mean Corpuscular Hemoglobin Concent 33.5 Red Cell Distribution Width 12.1 Platelet Count 321 # Mean Platelet Volume 9.7 Neutrophils % 61.5 Lymphocytes % 24.0 Monocytes % 12.0 H Eosinophils % 1.7 Basophils % 0.6 Nucleated Red Blood Cells % 0.0 Neutrophils # 5.9 Lymphocytes # 2.3 Monocytes # 1.2 H Eosinophils # 0.2 Basophils # 0.1 Nucleated Red Blood Cells # 0.0 Sodium Level 140 Potassium Level 3.6 Chloride Level 102 Carbon Dioxide Level 28 Anion Gap 14 Blood Urea Nitrogen 14 Creatinine 0.78 Glucose Level 104 Calcium Level 9.2 Medications Current Medications Ondansetron HCl (Zofran Inj) 4 mg Q6H PRN IV NAUSEA AND/OR VOMITING; Start at 11:46 Acetaminophen (Tylenol Tab) 650 mg Q4H PRN PO PAIN AND OR ELEVATED TEMP; Start 09/02/17 at 16:00 Acetaminophen/ Hydrocodone Bitart ([place] (5/325)) 1 tab Q4H PRN PO PAIN LEVEL 1 -5 Last administered on 09/04/17 20:20; Admin Dose 1 TAB; Start 09/03/17 at 11:45 Acetaminophen/ Hydrocodone Bitart ([place] (5/325)) 2 tab Q4H PRN PO PAIN LEVEL 6 -10; Start 09/03/17 at 11:45 Atenolol (Tenormin) 50 mg DAILY PO Last administered on 09/07/17 09:29; Admin Dose 50 MG; Start 09/03/17 at 09:00 Atorvastatin Calcium (Lipitor) 40 mg QHS PO Last administered on 09/06/17 21: 10; Admin Dose 40 MG; Start 09/03/17 at 21:00 Morphine Sulfate (morphine) 2 mg Q2H PRN IV SEVERE PAIN LEVEL 7-10 Last administered on 09/04/17 06:37; Admin Dose 2 MG; Start 09/03/17 at 09:00 Enoxaparin Sodium 40 mg 40 mg DAILY SC Last administered on 09/07/17 09:42; Admin Dose 40 MG; Start 09/05/17 at 09:00 Piperacillin Sod/ Tazobactam Sod (Zosyn 3.375gm/ 100 ml (Pmx)) 100 ml @ 25 mls/ hr TID@02,10,18 IVPB Last administered on 09/07/17 09:29; Admin Dose 25 MLS/HR ; Start 09/06/17 at 18:00 Furosemide (Lasix) 20 mg ONCE ONCE IV ; Start 09/07/17 at 15:00; Stop 09/07/17 at 15:01 Furosemide (Lasix) 40 mg DAILY PO ; Start 09/08/17 at 09:00 Assessment/Plan Chief Complaint/Hosp Course IMPRESSION AND PLAN: 1. Acute hypoxemic respiratory failure, status post hysterectomy and bilateral salpingo-oophorectomy, now hypoxic with alveolar hypoventilation with bibasilar atelectasis and pulmonary edema. Continue Lasix. Decrease O2 as tolerated 2. Encourage out of bed and mobilize continue incentive spirometry 3. Continue ICU monitoring 4. CT angiogram, no evidence of pulmonary embolism bibasilar atelectasis Consider transfer to [facility] Problems: AARON VENTURA MD, [facility] Sep 07, 2017 13:55
--- NOTE | 2017-09-07 13:55 | CONS ---
Date/Time of Note Date/Time of Note DATE: 09/07/17 TIME: 13:51 Consult Date/Type/Reason Admit Date/Time Sep 02, 2017 at 06:12 Type of Consultation: Pulmonary Subjective Improving oxygenation now requiring 3-4 L nasal cannula. Objective Vital Signs Date Time Temp Pulse Resp B/P Pulse Ox O2 Delivery O2 Flow Rate FiO2 09/07/17 12:00 52 09/07/17 11:39 98.5 20 115/57 98 09/07/17 09:41 4.0 09/07/17 08:30 Nasal Cannula 09/04/17 00:26 100 Intake and Output 09/06/17 09/06/17 09/07/17 15:00 23:00 07:00 Intake Total 600 ml 250 ml 100 ml Output Total 1300 ml 400 ml Balance -700 ml -150 ml 100 ml Exam PHYSICAL EXAMINATION: GENERAL: Well-nourished, well-developed lady, comfortable at rest on nonrebreather, talking in full and complete sentences. VITAL SIGNS: NECK: Supple. No JVD or lymphadenopathy. CARDIAC: S1, S2, no added sounds or murmurs. CHEST: Diminished air entry bilaterally. ABDOMEN: Soft, nontender. No guarding or rebound. EXTREMITIES: No cyanosis, clubbing, edema. NEUROLOGIC: Generalized weakness. Results/Medications Result Diagram: 09/07/17 0644 09/07/17 0644 Results 24 hrs Laboratory Tests Test 09/07/17 06:44 White Blood Count 9.6 Red Blood Count 4.20 Hemoglobin 12.2 Hematocrit 36.4 L Mean Corpuscular Volume 86.7 Mean Corpuscular Hemoglobin 29.0 Mean Corpuscular Hemoglobin Concent 33.5 Red Cell Distribution Width 12.1 Platelet Count 321 # Mean Platelet Volume 9.7 Neutrophils % 61.5 Lymphocytes % 24.0 Monocytes % 12.0 H Eosinophils % 1.7 Basophils % 0.6 Nucleated Red Blood Cells % 0.0 Neutrophils # 5.9 Lymphocytes # 2.3 Monocytes # 1.2 H Eosinophils # 0.2 Basophils # 0.1 Nucleated Red Blood Cells # 0.0 Sodium Level 140 Potassium Level 3.6 Chloride Level 102 Carbon Dioxide Level 28 Anion Gap 14 Blood Urea Nitrogen 14 Creatinine 0.78 Glucose Level 104 Calcium Level 9.2 Medications Current Medications Ondansetron HCl (Zofran Inj) 4 mg Q6H PRN IV NAUSEA AND/OR VOMITING; Start at 11:46 Acetaminophen (Tylenol Tab) 650 mg Q4H PRN PO PAIN AND OR ELEVATED TEMP; Start 09/02/17 at 16:00 Acetaminophen/ Hydrocodone Bitart ([place] (5/325)) 1 tab Q4H PRN PO PAIN LEVEL 1 -5 Last administered on 09/04/17 20:20; Admin Dose 1 TAB; Start 09/03/17 at 11:45 Acetaminophen/ Hydrocodone Bitart ([place] (5/325)) 2 tab Q4H PRN PO PAIN LEVEL 6 -10; Start 09/03/17 at 11:45 Atenolol (Tenormin) 50 mg DAILY PO Last administered on 09/07/17 09:29; Admin Dose 50 MG; Start 09/03/17 at 09:00 Atorvastatin Calcium (Lipitor) 40 mg QHS PO Last administered on 09/06/17 21: 10; Admin Dose 40 MG; Start 09/03/17 at 21:00 Morphine Sulfate (morphine) 2 mg Q2H PRN IV SEVERE PAIN LEVEL 7-10 Last administered on 09/04/17 06:37; Admin Dose 2 MG; Start 09/03/17 at 09:00 Enoxaparin Sodium 40 mg 40 mg DAILY SC Last administered on 09/07/17 09:42; Admin Dose 40 MG; Start 09/05/17 at 09:00 Piperacillin Sod/ Tazobactam Sod (Zosyn 3.375gm/ 100 ml (Pmx)) 100 ml @ 25 mls/ hr TID@02,10,18 IVPB Last administered on 09/07/17 09:29; Admin Dose 25 MLS/HR ; Start 09/06/17 at 18:00 Furosemide (Lasix) 20 mg ONCE ONCE IV ; Start 09/07/17 at 15:00; Stop 09/07/17 at 15:01 Furosemide (Lasix) 40 mg DAILY PO ; Start 09/08/17 at 09:00 Assessment/Plan Chief Complaint/Hosp Course IMPRESSION AND PLAN: 1. Acute hypoxemic respiratory failure, status post hysterectomy and bilateral salpingo-oophorectomy, now hypoxic with alveolar hypoventilation with bibasilar atelectasis and pulmonary edema. Continue Lasix. Decrease O2 as tolerated 2. Encourage out of bed and mobilize continue incentive spirometry 3. Continue ICU monitoring 4. CT angiogram, no evidence of pulmonary embolism bibasilar atelectasis Consider transfer to [facility] Problems: AARON VENTURA MD, [facility] Sep 07, 2017 13:55
[2017-09-07] MEDS ORDERED: FUROSEMIDE 20 MG INJ IV ONE (15:00)
--- NOTE | 2017-09-07 15:52 | PN ---
Date/Time of Note Date/Time of Note DATE: 09/07/17 TIME: 15:50 Assessment/Plan VTE Prophylaxis VTE Prophylaxis Intervention: SCD's Lines/Catheters [facility] Urinary Cath still in place: No Assessment/Plan Chief Complaint/Hosp Course Patient is comfortable on 4 L oxygen via nasal cannula denies any chest pain denies shortness of breath. Start PT. Assessment/Plan - Endometrial cancer, status post lap total hysterectomy and bilateral salpingo -oophorectomy on the 09/[address] Calvillo. - Acute hypoxemic respiratory failure, Dr. Donato is following in pulmonology consultation. CTA is negative for PE. Zosyn for possible underlying pneumonia. -Acute decompensated congestive heart failure, continue Lasix. Dr. Vo is following in cardiology consultation. - Cardiomegaly. - Hypertension. Continue atenolol. Further recommendations based on clinical course. Plan of care discussed with Dr. Saucedo. Problems: Exam/Review of Systems Vital Signs Vitals Vital Signs Date Time Temp Pulse Resp B/P Pulse Ox O2 Delivery O2 Flow Rate FiO2 09/07/17 15:32 98.3 63 20 129/63 94 09/07/17 09:41 4.0 09/07/17 08:30 Nasal Cannula 09/04/17 00:26 100 Intake and Output 09/06/17 09/06/17 09/07/17 15:00 23:00 07:00 Intake Total 600 ml 250 ml 100 ml Output Total 1300 ml 400 ml Balance -700 ml -150 ml 100 ml Exam Constitutional: alert, oriented Head: normocephalic Neck: supple Respiratory: diminished breath sounds Cardiovascular: nl pulses Gastrointestinal: non-tender, soft Genitourinary - Female: other (s/p surgery) Extremities: normal pulses Results Result Diagram: 09/07/17 0644 09/07/17 0644 Results 24 hrs Laboratory Tests Test 09/07/17 06:44 White Blood Count 9.6 Red Blood Count 4.20 Hemoglobin 12.2 Hematocrit 36.4 L Mean Corpuscular Volume 86.7 Mean Corpuscular Hemoglobin 29.0 Mean Corpuscular Hemoglobin Concent 33.5 Red Cell Distribution Width 12.1 Platelet Count 321 # Mean Platelet Volume 9.7 Neutrophils % 61.5 Lymphocytes % 24.0 Monocytes % 12.0 H Eosinophils % 1.7 Basophils % 0.6 Nucleated Red Blood Cells % 0.0 Neutrophils # 5.9 Lymphocytes # 2.3 Monocytes # 1.2 H Eosinophils # 0.2 Basophils # 0.1 Nucleated Red Blood Cells # 0.0 Sodium Level 140 Potassium Level 3.6 Chloride Level 102 Carbon Dioxide Level 28 Anion Gap 14 Blood Urea Nitrogen 14 Creatinine 0.78 Glucose Level 104 Calcium Level 9.2 Medications Medications Current Medications Ondansetron HCl (Zofran Inj) 4 mg Q6H PRN IV NAUSEA AND/OR VOMITING; Start at 11:46 Acetaminophen (Tylenol Tab) 650 mg Q4H PRN PO PAIN AND OR ELEVATED TEMP; Start 09/02/17 at 16:00 Acetaminophen/ Hydrocodone Bitart ([place] (5/325)) 1 tab Q4H PRN PO PAIN LEVEL 1 -5 Last administered on 09/04/17 20:20; Admin Dose 1 TAB; Start 09/03/17 at 11:45 Acetaminophen/ Hydrocodone Bitart ([place] (5/325)) 2 tab Q4H PRN PO PAIN LEVEL 6 -10; Start 09/03/17 at 11:45 Atenolol (Tenormin) 50 mg DAILY PO Last administered on 09/07/17 09:29; Admin Dose 50 MG; Start 09/03/17 at 09:00 Atorvastatin Calcium (Lipitor) 40 mg QHS PO Last administered on 09/06/17 21: 10; Admin Dose 40 MG; Start 09/03/17 at 21:00 Morphine Sulfate (morphine) 2 mg Q2H PRN IV SEVERE PAIN LEVEL 7-10 Last administered on 09/04/17 06:37; Admin Dose 2 MG; Start 09/03/17 at 09:00 Enoxaparin Sodium 40 mg 40 mg DAILY SC Last administered on 09/07/17 09:42; Admin Dose 40 MG; Start 09/05/17 at 09:00 Piperacillin Sod/ Tazobactam Sod (Zosyn 3.375gm/ 100 ml (Pmx)) 100 ml @ 25 mls/ hr TID@02,10,18 IVPB Last administered on 09/07/17 09:29; Admin Dose 25 MLS/HR ; Start 09/06/17 at 18:00 Furosemide (Lasix) 40 mg DAILY PO ; Start 09/08/17 at 09:00 [place] HE Sep 07, 2017 15:52
[2017-09-07] MEDS: ATORVASTATIN 40 MG TAB PO SCH (20:29)
[2017-09-08] VITALS (10 sets, daily range): BP systolic 108–128; BP diastolic 56–70; PULSE 53–65; RESP 16–20
[2017-09-08] MEDS: PIPER-TAZO 3.375 GM IV (PMX) 100 ML IVPB SCH ×2 (01:56→10:52)
--- NOTE | 2017-09-08 08:22 | RADRPT ---
PROCEDURE: XR Chest. CLINICAL INDICATION: Shortness of breath. TECHNIQUE: Single frontal view. COMPARISON: 09/06/2017. FINDINGS: There is interstitial disease bilaterally consistent with pulmonary edema and mild bibasilar atelect asis, unchanged. The lungs are otherwise clear. The heart is enlarged. There is calcification in the aorta consistent with atherosclerosis. There is no pleural effusion. There is no pneumothorax. IMPRESSION: 1. No change from 09/06/2017. RPTAT: QQ .Erasmo Chau MD, MD Date Time Electronically viewed and signed by .Erasmo Chau MD, MD on 09/08/2017 08:22 .R/
[2017-09-08] MEDS: ATENOLOL 50 MG TAB PO SCH (09:00)
[2017-09-08] MEDS ORDERED: FUROSEMIDE 40 MG TAB PO SCH (09:00)
[2017-09-08] MEDS: ENOXAPARIN 40 MG/0.4 ML SYG SC SCH (09:02)
--- NOTE | 2017-09-08 12:46 | CONS ---
Date/Time of Note Date/Time of Note DATE: 09/08/17 TIME: 12:45 Consult Date/Type/Reason Admit Date/Time Sep 02, 2017 at 06:12 Type of Consultation: Pulmonary Subjective Significant improvement. Ambulating on room air. Objective Vital Signs Date Time Temp Pulse Resp B/P Pulse Ox O2 Delivery O2 Flow Rate FiO2 09/08/17 12:19 65 09/08/17 11:28 98.2 18 108/56 97 09/08/17 08:00 Nasal Cannula 3.0 09/07/17 23:34 33 Intake and Output 09/07/17 09/07/17 09/08/17 15:00 23:00 07:00 Intake Total 100 ml 850 ml 320 ml Output Total 950 ml Balance 100 ml -100 ml 320 ml Exam PHYSICAL EXAMINATION: GENERAL: Well-nourished, well-developed lady, comfortable at rest VITAL SIGNS: NECK: Supple. No JVD or lymphadenopathy. CARDIAC: S1, S2, no added sounds or murmurs. CHEST: Diminished air entry bilaterally. ABDOMEN: Soft, nontender. No guarding or rebound. EXTREMITIES: No cyanosis, clubbing, edema. NEUROLOGIC: Generalized weakness. Results/Medications Result Diagram: 09/08/17 0800 09/08/17 0800 Results 24 hrs Laboratory Tests Test 09/08/17 08:00 White Blood Count 10.4 Red Blood Count 4.26 Hemoglobin 12.3 Hematocrit 36.9 L Mean Corpuscular Volume 86.6 Mean Corpuscular Hemoglobin 28.9 L Mean Corpuscular Hemoglobin Concent 33.3 Red Cell Distribution Width 12.2 Platelet Count 342 Mean Platelet Volume 9.4 Neutrophils % 57.3 Lymphocytes % 26.5 Monocytes % 12.7 H Eosinophils % 2.3 Basophils % 0.8 Nucleated Red Blood Cells % 0.0 Neutrophils # 6.0 Lymphocytes # 2.8 Monocytes # 1.3 H Eosinophils # 0.2 Basophils # 0.1 Nucleated Red Blood Cells # 0.0 Sodium Level 140 Potassium Level 3.9 Chloride Level 98 Carbon Dioxide Level 32 H Anion Gap 14 Blood Urea Nitrogen 18 Creatinine 0.95 Glucose Level 103 Calcium Level 9.2 Magnesium Level 2.0 Medications Current Medications Ondansetron HCl (Zofran Inj) 4 mg Q6H PRN IV NAUSEA AND/OR VOMITING; Start at 11:46 Acetaminophen (Tylenol Tab) 650 mg Q4H PRN PO PAIN AND OR ELEVATED TEMP; Start 09/02/17 at 16:00 Acetaminophen/ Hydrocodone Bitart ([place] (5/325)) 1 tab Q4H PRN PO PAIN LEVEL 1 -5 Last administered on 09/04/17 20:20; Admin Dose 1 TAB; Start 09/03/17 at 11:45 Acetaminophen/ Hydrocodone Bitart ([place] (5/325)) 2 tab Q4H PRN PO PAIN LEVEL 6 -10; Start 09/03/17 at 11:45 Atenolol (Tenormin) 50 mg DAILY PO Last administered on 09/07/17 09:29; Admin Dose 50 MG; Start 09/03/17 at 09:00 Atorvastatin Calcium (Lipitor) 40 mg QHS PO Last administered on 09/07/17 20: 29; Admin Dose 40 MG; Start 09/03/17 at 21:00 Morphine Sulfate (morphine) 2 mg Q2H PRN IV SEVERE PAIN LEVEL 7-10 Last administered on 09/04/17 06:37; Admin Dose 2 MG; Start 09/03/17 at 09:00 Enoxaparin Sodium 40 mg 40 mg DAILY SC Last administered on 09/08/17 09:02; Admin Dose 40 MG; Start 09/05/17 at 09:00 Piperacillin Sod/ Tazobactam Sod (Zosyn 3.375gm/ 100 ml (Pmx)) 100 ml @ 25 mls/ hr TID@02,10,18 IVPB Last administered on 09/08/17 10:52; Admin Dose 25 MLS/HR ; Start 09/06/17 at 18:00 Furosemide (Lasix) 40 mg DAILY PO Last administered on 09/08/17 09:02; Admin Dose 40 MG; Start 09/08/17 at 09:00 Assessment/Plan Chief Complaint/Hosp Course IMPRESSION AND PLAN: 1. Acute hypoxemic respiratory failure, status post hysterectomy and bilateral salpingo-oophorectomy, now hypoxic with alveolar hypoventilation with bibasilar atelectasis and pulmonary edema. DC Lasix. Now on room air. 2. Encourage out of bed and mobilize continue incentive spirometry 3. Continue ICU monitoring 4. CT angiogram, no evidence of pulmonary embolism bibasilar atelectasis Discharge okay from pulmonary standpoint. Problems: AARON VENTURA MD, [facility] Sep 08, 2017 12:46
[2017-09-08] MEDS ORDERED: POTASSIUM CHLORIDE (SR) 20 MEQ TAB PO STA (13:56)
--- NOTE | 2017-09-08 13:59 | CONS ---
Date/Time of Note Date/Time of Note DATE: 09/08/17 TIME: 13:57 Assessment/Plan Assessment/Plan Additional Assessment/Plan Acute decompensated diastolic congestive heart failure Preserved ejection fraction Endometrial cancer status post hysterectomy History of Hypertension History of dyslipidemia -Clinically feeling better with less shortness of breath, tolerating p.o. Lasix , would continue upon discharge with close outpatient follow-up. 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 Will order 1 dose of p.o. potassium. DC planning. Consultation Date/Type/Reason Admit Date/Time Sep 02, 2017 at 06:12 Type of Consultation: cv 24 HR Interval Summary Free Text/Dictation Denies shortness of breath at rest or with activity. Ambulating in the hallways without shortness of breath Exam/Review of Systems Vital Signs Vitals Vital Signs Date Time Temp Pulse Resp B/P Pulse Ox O2 Delivery O2 Flow Rate FiO2 09/08/17 12:19 65 09/08/17 11:28 98.2 18 108/56 97 09/08/17 08:00 Nasal Cannula 3.0 09/07/17 23:34 33 Intake and Output 09/07/17 09/07/17 09/08/17 15:00 23:00 07:00 Intake Total 100 ml 850 ml 320 ml Output Total 950 ml Balance 100 ml -100 ml 320 ml Exam No apparent distress Constitutional: alert, oriented Head: normocephalic Respiratory: other (Coarse breath sounds bilaterally, rhonchi right base, no wheezing) Cardiovascular: other (S1-S2 heard), regular rate and rhythm Gastrointestinal: bowel sounds, non-tender, soft Extremities: edema (Trace) Results Result Diagram: 09/08/17 0800 09/08/17 0800 Results 24 hrs Laboratory Tests Test 09/08/17 08:00 White Blood Count 10.4 Red Blood Count 4.26 Hemoglobin 12.3 Hematocrit 36.9 L Mean Corpuscular Volume 86.6 Mean Corpuscular Hemoglobin 28.9 L Mean Corpuscular Hemoglobin Concent 33.3 Red Cell Distribution Width 12.2 Platelet Count 342 Mean Platelet Volume 9.4 Neutrophils % 57.3 Lymphocytes % 26.5 Monocytes % 12.7 H Eosinophils % 2.3 Basophils % 0.8 Nucleated Red Blood Cells % 0.0 Neutrophils # 6.0 Lymphocytes # 2.8 Monocytes # 1.3 H Eosinophils # 0.2 Basophils # 0.1 Nucleated Red Blood Cells # 0.0 Sodium Level 140 Potassium Level 3.9 Chloride Level 98 Carbon Dioxide Level 32 H Anion Gap 14 Blood Urea Nitrogen 18 Creatinine 0.95 Glucose Level 103 Calcium Level 9.2 Magnesium Level 2.0 Medications Medications Current Medications Ondansetron HCl (Zofran Inj) 4 mg Q6H PRN IV NAUSEA AND/OR VOMITING; Start at 11:46 Acetaminophen (Tylenol Tab) 650 mg Q4H PRN PO PAIN AND OR ELEVATED TEMP; Start 09/02/17 at 16:00 Acetaminophen/ Hydrocodone Bitart ([place] (5/325)) 1 tab Q4H PRN PO PAIN LEVEL 1 -5 Last administered on 09/04/17 20:20; Admin Dose 1 TAB; Start 09/03/17 at 11:45 Acetaminophen/ Hydrocodone Bitart ([place] (5/325)) 2 tab Q4H PRN PO PAIN LEVEL 6 -10; Start 09/03/17 at 11:45 Atenolol (Tenormin) 50 mg DAILY PO Last administered on 09/07/17 09:29; Admin Dose 50 MG; Start 09/03/17 at 09:00 Atorvastatin Calcium (Lipitor) 40 mg QHS PO Last administered on 09/07/17 20: 29; Admin Dose 40 MG; Start 09/03/17 at 21:00 Morphine Sulfate (morphine) 2 mg Q2H PRN IV SEVERE PAIN LEVEL 7-10 Last administered on 09/04/17 06:37; Admin Dose 2 MG; Start 09/03/17 at 09:00 Enoxaparin Sodium 40 mg 40 mg DAILY SC Last administered on 09/08/17 09:02; Admin Dose 40 MG; Start 09/05/17 at 09:00 Piperacillin Sod/ Tazobactam Sod (Zosyn 3.375gm/ 100 ml (Pmx)) 100 ml @ 25 mls/ hr TID@02,,18 IVPB Last administered on 09/08/17 10:52; Admin Dose 25 MLS/HR ; Start 09/06/17 at 18:00 Furosemide (Lasix) 40 mg DAILY PO Last administered on 09/08/17 09:02; Admin Dose 40 MG; Start 09/08/17 at 09:00 Rigoberto Vo DO Sep 08, 2017 13:59
--- NOTE | 2017-09-08 15:07 | DS ---
Date/Time of Note Date/Time of Note DATE: 09/08/17 TIME: 15:06 Discharge Summary Admission/Discharge Info Admit Date/Time Sep 02, 2017 at 06:12 Discharge Date/Time Patient Condition: Stable Hospital Course IMPRESSION AND PLAN: 1. Acute hypoxemic respiratory failure, status post hysterectomy and bilateral salpingo-oophorectomy, now hypoxic with alveolar hypoventilation with bibasilar atelectasis and pulmonary edema. DC Lasix. Now on room air. 2. Encourage out of bed and mobilize continue incentive spirometry 3. Continue ICU monitoring 4. CT angiogram, no evidence of pulmonary embolism bibasilar atelectasis Discharge okay from pulmonary standpoint. Home Meds Active Scripts Furosemide* (Furosemide*) 40 Mg Tablet, 40 MG PO DAILY for 30 Days, TAB Prov:GIDEON MARTINEZ 09/08/17 Reported Medications Hydrochlorothiazide (Hydrochlorothiazide) 12.5 Mg Capsule, 12.5 MG PO DAILY, # 30 CAP 09/02/17 Atorvastatin* (Atorvastatin*) 40 Mg Tablet, 40 MG PO QHS, #30 TAB 09/02/17 Atenolol* (Atenolol*) 50 Mg Tablet, 50 MG PO DAILY, #30 TAB 09/02/17 Aspirin (Aspirin) 81 Mg Chew, 81 MG PO DAILY, TAB.CHEW 09/02/17 Amlodipine Besylate* (Amlodipine Besylate*) 10 Mg Tablet, 10 MG PO DAILY, #30 TAB 09/02/17 Primary Care Provider Kyler Burrows Time spent on discharge: < 30 minutes Pending Labs Laboratory Tests Test 09/08/17 08:00 White Blood Count 10.410^3/ul (4.8-10.8) Red Blood Count 4.2610^6/ul (4.20-5.40) Hemoglobin 12.3g/dl (12.0-16.0) Hematocrit 36.9% (37.0-47.0) Mean Corpuscular Volume 86.6fl (82.0-101.0) Mean Corpuscular Hemoglobin 28.9pg (29.0-33.0) Mean Corpuscular Hemoglobin Concent 33.3g/dl (32.0-37.0) Red Cell Distribution Width 12.2% (11.5-14.5) Platelet Count 01843^3/UL (140-415) Mean Platelet Volume 9.4fl (7.4-10.4) Neutrophils % 57.3% (39.0-77.0) Lymphocytes % 26.5% (15.0-51.0) Monocytes % 12.7% (0.0-11.0) Eosinophils % 2.3% (0.0-7.0) Basophils % 0.8% (0.0-2.0) Nucleated Red Blood Cells % 0.0/100WBC (0.0-0.0) Neutrophils # 6.010^3/ul (1.6-7.5) Lymphocytes # 2.810^3/ul (0.8-2.9) Monocytes # 1.310^3/ul (0.3-0.9) Eosinophils # 0.210^3/ul (0.0-0.5) Basophils # 0.110^3/ul (0.0-0.1) Nucleated Red Blood Cells # 0.010^3/ul (0.0-0.0) Sodium Level 140mmol/L (135-144) Potassium Level 3.9mmol/L (3.5-5.1) Chloride Level 98mmol/L (97-110) Carbon Dioxide Level 32mmol/L (21-31) Anion Gap 14 (8-16) Blood Urea Nitrogen 18mg/dl (7-20) Creatinine 0.95mg/dl (0.44-1.00) Glucose Level 103mg/dl (70-220) Calcium Level 9.2mg/dl (8.4-10.2) Magnesium Level 2.0mg/dl (1.7-2.5) GIDEON MARTINEZ Sep 08, 2017 15:07
--- NOTE | 2017-09-08 15:10 | PDOCDIS ---
Discharge Instructions CONDITION Patient Condition: Stable HOME CARE INSTRUCTIONS: Special Diet: FULL LIQUID ACTIVITY: Activity Restrictions: Slowly Increase Activity Rest between Activity Avoid heavy lifting Do not Drive Do not operate Machinery Do not operate Power Tool Avoid Heavy Housework Bathing Restrictions: Sponge Bath FOLLOW UP/APPOINTMENTS Follow-up Plan FU with PMD x 1 week Fu with surgery as recommended Call 911 OR go too the nearest hospital if symptoms get worse. Plan Dw Dr Saucedo/staff GIDEON MARTINEZ Sep 08, 2017 15:10
[2017-09-08] MEDS ORDERED: FURO40TA4 PO (15:16)
--- NOTE | 2017-09-08 15:17 | DS ---
Date/Time of Note Date/Time of Note DATE: 09/08/17 TIME: 15:17 Discharge Summary Admission/Discharge Info Admit Date/Time Sep 02, 2017 at 06:12 Discharge Date/Time Patient Condition: Stable Hospital Course IMPRESSION AND PLAN: 1. Acute hypoxemic respiratory failure, status post hysterectomy and bilateral salpingo-oophorectomy, now hypoxic with alveolar hypoventilation with bibasilar atelectasis and pulmonary edema. DC Lasix. Now on room air. 2. Encourage out of bed and mobilize continue incentive spirometry 3. Continue ICU monitoring 4. CT angiogram, no evidence of pulmonary embolism bibasilar atelectasis Discharge okay from pulmonary standpoint. Home Meds Active Scripts Furosemide* (Furosemide*) 40 Mg Tablet, 40 MG PO DAILY for 30 Days, TAB Prov:GIDEON MARTINEZ 09/08/17 Reported Medications Hydrochlorothiazide (Hydrochlorothiazide) 12.5 Mg Capsule, 12.5 MG PO DAILY, # 30 CAP 09/02/17 Atorvastatin* (Atorvastatin*) 40 Mg Tablet, 40 MG PO QHS, #30 TAB 09/02/17 Atenolol* (Atenolol*) 50 Mg Tablet, 50 MG PO DAILY, #30 TAB 09/02/17 Aspirin (Aspirin) 81 Mg Chew, 81 MG PO DAILY, TAB.CHEW 09/02/17 Amlodipine Besylate* (Amlodipine Besylate*) 10 Mg Tablet, 10 MG PO DAILY, #30 TAB 09/02/17 Follow-up Plan FU with PMD x 1 week Fu with surgery as recommended Call 911 OR go too the nearest hospital if symptoms get worse. Plan Dw Dr Saucdeo/staff Primary Care Provider Kyler Burrows Pending Labs Laboratory Tests Test 09/08/17 08:00 White Blood Count 10.410^3/ul (4.8-10.8) Red Blood Count 4.2610^6/ul (4.20-5.40) Hemoglobin 12.3g/dl (12.0-16.0) Hematocrit 36.9% (37.0-47.0) Mean Corpuscular Volume 86.6fl (82.0-101.0) Mean Corpuscular Hemoglobin 28.9pg (29.0-33.0) Mean Corpuscular Hemoglobin Concent 33.3g/dl (32.0-37.0) Red Cell Distribution Width 12.2% (11.5-14.5) Platelet Count 48362^3/UL (140-415) Mean Platelet Volume 9.4fl (7.4-10.4) Neutrophils % 57.3% (39.0-77.0) Lymphocytes % 26.5% (15.0-51.0) Monocytes % 12.7% (0.0-11.0) Eosinophils % 2.3% (0.0-7.0) Basophils % 0.8% (0.0-2.0) Nucleated Red Blood Cells % 0.0/100WBC (0.0-0.0) Neutrophils # 6.010^3/ul (1.6-7.5) Lymphocytes # 2.810^3/ul (0.8-2.9) Monocytes # 1.310^3/ul (0.3-0.9) Eosinophils # 0.210^3/ul (0.0-0.5) Basophils # 0.110^3/ul (0.0-0.1) Nucleated Red Blood Cells # 0.010^3/ul (0.0-0.0) Sodium Level 140mmol/L (135-144) Potassium Level 3.9mmol/L (3.5-5.1) Chloride Level 98mmol/L (97-110) Carbon Dioxide Level 32mmol/L (21-31) Anion Gap 14 (8-16) Blood Urea Nitrogen 18mg/dl (7-20) Creatinine 0.95mg/dl (0.44-1.00) Glucose Level 103mg/dl (70-220) Calcium Level 9.2mg/dl (8.4-10.2) Magnesium Level 2.0mg/dl (1.7-2.5) GIDEON MARTINEZ Sep 08, 2017 15:17
[2017-09-08] MEDS ORDERED: LEVO500T72 PO (15:25)
--- NOTE | 2017-09-08 15:40 | PN ---
Date/Time of Note Date/Time of Note DATE: 09/08/17 TIME: 15:37 Assessment/Plan VTE Prophylaxis VTE Prophylaxis Intervention: LMWH Lines/Catheters IV [facility] [place] [facility] Urinary Cath still in place: No Assessment/Plan Chief Complaint/Hosp Course endometrial ca Problems: Assessment/Plan A- doing better P- d/c when OK with IM, cardio, pulm Subjective 24 Hr Interval Summary Free Text/Dictation Feels better, OOB more, + flatus and eats OK. Exam/Review of Systems Vital Signs Vitals Vital Signs Date Time Temp Pulse Resp B/P Pulse Ox O2 Delivery O2 Flow Rate FiO2 09/08/17 15:07 98.2 64 16 127/59 94 09/08/17 14:01 Nasal Cannula 3.0 09/07/17 23:34 33 Intake and Output 09/07/17 09/07/17 09/08/17 15:00 23:00 07:00 Intake Total 100 ml 850 ml 320 ml Output Total 950 ml Balance 100 ml -100 ml 320 ml Exam Resp- clear CVS- NSR Abd- soft and NT and clean Ext- NT no edema Results Result Diagram: 09/08/17 0800 09/08/17 0800 Results 24 hrs Laboratory Tests Test 09/08/17 08:00 White Blood Count 10.4 Red Blood Count 4.26 Hemoglobin 12.3 Hematocrit 36.9 L Mean Corpuscular Volume 86.6 Mean Corpuscular Hemoglobin 28.9 L Mean Corpuscular Hemoglobin Concent 33.3 Red Cell Distribution Width 12.2 Platelet Count 342 Mean Platelet Volume 9.4 Neutrophils % 57.3 Lymphocytes % 26.5 Monocytes % 12.7 H Eosinophils % 2.3 Basophils % 0.8 Nucleated Red Blood Cells % 0.0 Neutrophils # 6.0 Lymphocytes # 2.8 Monocytes # 1.3 H Eosinophils # 0.2 Basophils # 0.1 Nucleated Red Blood Cells # 0.0 Sodium Level 140 Potassium Level 3.9 Chloride Level 98 Carbon Dioxide Level 32 H Anion Gap 14 Blood Urea Nitrogen 18 Creatinine 0.95 Glucose Level 103 Calcium Level 9.2 Magnesium Level 2.0 Medications Medications Current Medications Ondansetron HCl (Zofran Inj) 4 mg Q6H PRN IV NAUSEA AND/OR VOMITING; Start at 11:46 Acetaminophen (Tylenol Tab) 650 mg Q4H PRN PO PAIN AND OR ELEVATED TEMP; Start 09/02/17 at 16:00 Acetaminophen/ Hydrocodone Bitart ([place] (5/325)) 1 tab Q4H PRN PO PAIN LEVEL 1 -5 Last administered on 09/04/17 20:20; Admin Dose 1 TAB; Start 09/03/17 at 11:45 Acetaminophen/ Hydrocodone Bitart ([place] (5/325)) 2 tab Q4H PRN PO PAIN LEVEL 6 -10; Start 09/03/17 at 11:45 Atenolol (Tenormin) 50 mg DAILY PO Last administered on 09/07/17 09:29; Admin Dose 50 MG; Start 09/03/17 at 09:00 Atorvastatin Calcium (Lipitor) 40 mg QHS PO Last administered on 09/07/17 20: 29; Admin Dose 40 MG; Start 09/03/17 at 21:00 Morphine Sulfate (morphine) 2 mg Q2H PRN IV SEVERE PAIN LEVEL 7-10 Last administered on 09/04/17 06:37; Admin Dose 2 MG; Start 09/03/17 at 09:00 Enoxaparin Sodium 40 mg 40 mg DAILY SC Last administered on 09/08/17 09:02; Admin Dose 40 MG; Start 09/05/17 at 09:00 Piperacillin Sod/ Tazobactam Sod (Zosyn 3.375gm/ 100 ml (Pmx)) 100 ml @ 25 mls/ hr TID@02,10,18 IVPB Last administered on 09/08/17 10:52; Admin Dose 25 MLS/HR ; Start 09/06/17 at 18:00 Furosemide (Lasix) 40 mg DAILY PO Last administered on 09/08/17 09:02; Admin Dose 40 MG; Start 09/08/17 at 09:00 NUNO HECTOR MD Sep 08, 2017 15:40
== END 2017-09-08 16:30 | disposition home or self-care (01) | DRG 734 ==
LOC: EDBD 14:00 → REC 09-02 06:12 → MS1 09-02 14:49 → ICU 09-04 12:40 → TEL 09-06 17:54
PROC: 07TD4ZZ Resection of Aortic Lymphatic, Percutaneous Endoscopic Approach (ICD-10-PCS; principal; 2017-09-03)
PROC: 0UT9FZZ Resection of Uterus, Via Natural or Artificial Opening With Percutaneous Endoscopic Assistance (ICD-10-PCS; 2017-09-03)
PROC: 07TC4ZZ Resection of Pelvis Lymphatic, Percutaneous Endoscopic Approach (ICD-10-PCS; 2017-09-03)
PROC: 0UT2FZZ Resection of Bilateral Ovaries, Via Natural or Artificial Opening With Percutaneous Endoscopic Assistance (ICD-10-PCS; 2017-09-03)
PROC: 0UT7FZZ Resection of Bilateral Fallopian Tubes, Via Natural or Artificial Opening With Percutaneous Endoscopic Assistance (ICD-10-PCS; 2017-09-03)
DX: C54.1 Malignant neoplasm of endometrium (principal); J96.01 Acute respiratory failure with hypoxia; J18.9 Pneumonia, unspecified organism; I50.33 Acute on chronic diastolic (congestive) heart failure; C54.2 Malignant neoplasm of myometrium; I11.0 Hypertensive heart disease with heart failure; E87.6 Hypokalemia; E78.5 Hyperlipidemia, unspecified
CPT/HCPCS: 36600; 71010; 71275; 80048; 80053; 81001; 82803; 83735; 84100; 85025; 86304; 86850; 86870; 86900; 86901; 86902; 86920; 87081; 87086; 88305; 88307; 93005; 93306; 94667; 94668; 97161; J1940; J0461; J0690; J1170; J1644; J1650; J2250; J2270; J2274; J2405; J2543; J2710; J2765; J3010; J3475; J3480; J7120; Q9967